=== PATIENT | female | born 1945 | race Caucasian/White ===

== ENCOUNTER 2017-12-19 21:10 | Inpatient (IN) ==
[2017-12-20] MEDS ORDERED: Ibuprofen 400 MG TABLET PO PRN (02:05)
[2017-12-20] MEDS ORDERED: Naloxone 0.4 MG/ML INJ IVP PRN (02:05)
--- NOTE | 2017-12-20 02:25 | Internal Med History&Physical ---
<Makeda Live H - Last Filed: 12/20/17 02:53> Date of Encounter: 12/20/17 Time of Encounter: 02:11 Internal Medicine - H&P: HPI Chief complaint: right upper extremity infection Admitted From: Home Plans for Post Hospital Care: Home History of present illness: Ms. 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 Patient states her reported that she had a fever earlier in the day. Patient denies any fevers currently. Patient is a difficult historian and appears to have difficulty keeping focus. It is difficult to ascertain meaningful information about her past medical history. Patient does have a history of hepatic encephalopathy, however, according to her , this is her baseline. Patient and her report that she had new onset diarrhea yesterday which persisted throughout the day. She is denying any diarrhea today. She denies any abdominal tenderness, melena, hematochezia, or hematemesis. She denies any nausea or vomiting. Patient states she has a cat that sleeps in the bed with her. She is unsure of when she was bitten. She is currently on multiple immunosuppressive medications. 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 Patient denies any previous cardiac history of interventions but appears fluid overloaded on exam. She denies any current chest pain, palpitations, shortness or breath, or nausea. Past Med Surg Social Fam HX - Past Medical History Attestation: Yes The following information was validated with the patient. Source: patient, old records reviewed Medical history: CHF, liver disease Psychiatric history: no psych history - Past Surgical History Surgical History: cholecystectomy - Social History Smoking Status: Never smoker Smokeless Tobacco Status: No Alcohol use: none Drug use: none - Family History Mother Hx Family Cardiac Disorders: Yes (CHF) Internal Medicine - H&P: Meds Cholecalciferol (D-3) [Vitamin D] 5,000 unit PO QWEEK 12/19/17 [History] Furosemide [Lasix] 40 mg PO DAILY 12/19/17 [History] Glucosamn/Condroitn/C/Mn/[place] [Cvs Glucosamine Chondroitin Tb] 1 each PO DAILY 12/19/17 [History] Lactulose [Enulose] 15 ml PO TID 12/19/17 [History] Levothyroxine [Synthroid] 112 mcg PO 0630 12/19/17 [History] Memantine HCl [Memantine HCl] 5 mg PO BID 12/19/17 [History] Mv-Mn/FA/Vit K1/Lycop/Lut/Zeax [Ocuvite Eye + Multi Tablet] 1 each PO DAILY [History] Mycophenolate Mofetil [Cellcept] 250 mg PO BID 12/19/17 [History] PredniSONE [Alee] 5 mg PO DAILY 12/19/17 [History] Spironolactone [Aldactone] 50 mg PO DAILY 12/19/17 [History] 3 Allergy/AdvReac Type Severity Reaction Status Date / Time Sulfa (Sulfonamide Allergy Hives Verified 12/19/17 18:05 Antibiotics) All Systems PM: A 10-system review of systems was performed and is negative for pertinent findings except as documented above in the HPI. - Constitutional Constitutional: fever(s), no chills, no fatigue, no lethargy, no malaise, no night sweats, no weight gain, no weight loss - EENT Eyes: no change in vision Nose, mouth and throat: no nasal congestion, no nasal discharge - Cardiovascular Cardiovascular ROS IM: no chest pain, no claudication, no diaphoresis, no dyspnea, no dyspnea on exertion, no irregular heart rhythm, no lightheadedness, no orthopnea, no palpitations, no paroxysmal nocturnal dyspnea - Respiratory Respiratory: no cough, no dyspnea, no chest congestion - Gastrointestinal Gastrointestinal: diarrhea, no abdominal pain, no coffee ground emesis, no constipation, no hematemesis, no hematochezia, no melena, no nausea - Musculoskeletal Musculoskeletal ROS IM: no joint swelling - Integumentary Integumentary IM: erythema, rash, jaundice, no non-healing lesions - Neurological Neurological ROS: memory loss, no abnormal hearing, no abnormal movements, no abnormal speech, no confusion, no focal weakness, no tingling, no weakness - Endocrine Endocrine IM: no cold intolerance, no heat intolerance - Hematologic/Lymphatic Hematologic/Lymphatic: easy bruising - Constitutional Vitals: Temp Pulse Resp BP Pulse Ox 98.3 F 74 16 125/70 97 12/20/17 00:30 12/19/17 23:22 12/19/17 23:22 12/19/17 23:22 12/19/17 23:22 General appearance: Present: cooperative, A&O X 3, pleasant, no acute distress, answers questions appropriately (patient understands questioning, and is re- directable, but has difficulty staying focused and recalling information) Exam: chronically ill appearing - Head Head exam: Present: atraumatic, normocephalic - Eye Eye exam: Present: PERRL, scleral icterus, conjuntiva pink Pupils: Present: PERRL - Neck Neck exam general surgery: Present: supple, trachea midline. Absent: lymphadenopathy - Respiratory Respiratory exam: Present: rales. Absent: accessory muscle use, rhonchi, wheezes - Cardiovascular Cardiovascular exam: Present: RRR, +S1, +S2. Absent: diastolic murmur, gallop, rubs, systolic murmur - GI/Abdominal GI/Abdominal exam: Present: normal bowel sounds, soft, no peritoneal signs. Absent: distended, firm, guarding, hernia, rebound, tenderness - Expanded GI/Abdominal Exam GI/Abdominal exam expanded: Absent: ascites - Extremities Exam Extremities exam: Present: full ROM, pedal edema, warm, radial pulses palpable and symmetrical. Absent: calf tenderness, cyanotic, joint swelling Additional comments: Patient's right upper extremity with a erythematous deep red stain-like lesion located over the extensor surface of her right forearm and arm. Patient states this lesion has been present prior to initiation of her symptoms. This area of discoloration is non-blanchable. The entire right forearm is, however, warm to the touch, erythematous, slightly edematous, and tender to palpation. - Neurological Exam Neurological exam: Present: alert, CN II-XII intact, oriented X3, no focal deficits, strengths equal and symetr throughout. Absent: pronater drift, facial droop, speech deficit - Psychiatric Psychiatric exam: Present: normal affect, normal mood - Skin Skin exam: Present: dry, intact, warm. Absent: excoriation, petechiae - Assessment and plan (1) Cellulitis Current Visit: No Status: Acute Assessment and plan: 72 yo chronically ill female with PMHx of autoimmune liver disease on immunosuppression presents with signs of RUE infection after sustaining a cat bite. Patient has a chronic skin pigmentation on the same extremity. She is unclear what that is from but it was present prior to signs of infection. -Will cover for most likely causative organisms as well as Bartonella to cover for potential cat scratch fever as patient with axillary tenderness and lymphadenopathy. -Patient received a dose of Zosyn and Cleocin at outside facility prior to transport. -IV doxycycline and IV Zosyn. -Consult to infectious disease. Qualifiers: Site of cellulitis: extremity Site of cellulitis of extremity: upper extremity Laterality: right Qualified Code(s): L03.113 - Cellulitis of right upper limb (2) Congestive heart failure Current Visit: Yes Status: Acute Assessment and plan: Patient denies history of congestive heart failure, however, she appears fluid overloaded on physical exam with bilateral pedal edema and crackles in her bilateral lungs. Patient reports seeing physicians at many different facilities and she is on lasix as an outpatient. -Will obtain medical records. -We will order a BNP, chest x-ray, and echocardiogram in the a.m. Qualifiers: Heart failure type: unspecified Heart failure chronicity: unspecified Qualified Code(s): I50.9 - Heart failure, unspecified (3) Primary biliary cirrhosis Current Visit: Yes Status: Acute Assessment and plan: Will resume home medications once confirmed in the EMR. (4) Portal hypertension Current Visit: Yes Status: Acute Assessment and plan: Will resume home medications once confirmed in EMR. (5) DVT prophylaxis Current Visit: Yes Status: Acute Assessment and plan: EPCDs as patient has baseline anemia and thrombocytopenia. - Time Spent With Patient Total time spent is greater than 50% in coordination of care (as documented) at patient's floor/unit and/or counseling patient: <Bhavana Beyer - Last Filed: 12/20/17 04:23> Date of Encounter: 12/20/17 Internal Medicine - H&P: HPI History of present illness: Ms. Kent is a 72 year old female All Systems PM: A 10-system review of systems was performed and is negative for pertinent findings except as documented above in the HPI. - Constitutional Vitals: Temp Pulse Resp BP Pulse Ox 98.3 F 77 16 108/58 96 12/20/17 03:17 12/20/17 03:17 12/20/17 03:17 12/20/17 03:17 12/20/17 03:17 - Attending Attestation I have seen and examined this patient independently. I have discussed with resident physician Dr. Live regarding the management plan. Agree with the documentation. - Assessment and plan (1) Cellulitis Current Visit: No Status: Acute Qualifiers: Site of cellulitis: extremity Site of cellulitis of extremity: upper extremity Laterality: right Qualified Code(s): L03.113 - Cellulitis of right upper limb (2) Congestive heart failure Current Visit: Yes Status: Acute Qualifiers: Heart failure type: unspecified Heart failure chronicity: unspecified Qualified Code(s): I50.9 - Heart failure, unspecified (3) Primary biliary cirrhosis Current Visit: Yes Status: Acute (4) Portal hypertension Current Visit: Yes Status: Acute (5) DVT prophylaxis Current Visit: Yes Status: Acute - Time Spent With Patient Total time spent is greater than 50% in coordination of care (as documented) at patient's floor/unit and/or counseling patient:
[2017-12-20 04:37] LABS: Mean Platelet Volume 10.9 fL (9.4-12.4); Red Cell Distribution Width 15.7 % (11.5-14.5)
[2017-12-20] MEDS: Doxycycline 100 MG in 0.9 % Sodium Chloride Mini Bag 100 ML IVPB SCH ×2 (04:38→15:37)
[2017-12-20 04:39] LABS: Basophils % 0.4 %; Eosinophils # 0.1 K/mcL (0.0-0.6); Eosinophils % 1.9 %; Hematocrit 23.2 % (35.3-44.9); Hemoglobin 7.6 g/dL (11.5-15.4); Immature Granulocytes % 0.4 % (0-4); Immature Platelets 1.9 % (1.1-6.1); Lymphocytes # 0.7 K/mcL (0.6-4.6); Lymphocytes % 25.2 %; Mean Corpuscular HGB Conc 32.8 g/dL (31.6-35.5); Mean Corpuscular Hemoglobin 32.5 pg (28.0-33.3); Mean Corpuscular Volume 99.1 fL (83.0-100.0); Monocytes # 0.3 K/mcL (0.0-1.3); Monocytes % 12.2 %; Neutrophils # 1.6 K/mcL (1.6-8.9); Red Blood Count 2.34 M/mcL (3.82-4.97); Segmented Neutrophils % 59.9 %
[2017-12-20 05:11] LABS: Platelet Count 37 K/mcL (140-400)
[2017-12-20 05:13] LABS: Hypochromasia Present (Not Present); Microcytosis Present (Not Present); Platelet Estimate Marked Decrease (Normal)
[2017-12-20] MEDS ORDERED: Piperacillin/Tazobactam 3.375 GM in 0.9 % Sodium Chloride Mini Bag 100 ML IVPB SCH (08:00)
[2017-12-20 08:01] LABS: Albumin 2.5 g/dL (3.5-5.7); Albumin/Globulin Ratio 1.3 (1.1-2.2); Bilirubin,Total 5.9 mg/dL (0.3-1.0); Calcium 7.8 mg/dL (8.6-10.3); Magnesium 1.7 mg/dL (1.6-2.6); Potassium 3.5 mEq/L (3.5-5.1); Total Protein 4.5 g/dL (6.4-8.9)
--- NOTE | 2017-12-20 08:38 | Event Note ---
<Angelita Carmichael - Last Filed: 12/20/17 14:36> Date of Encounter: 12/20/17 Time of Encounter: 08:36 72yo female PMH autoimmune liver disease, CKD, CHF who presented to [facility] from [place] [facility] complaining of right upper extremity swelling and pain after Bite on Tuesday. Patient denies fever, chills, nausea, vomiting. She reports that her right axilla is stretch box tender. Gen.: Vitals noted. No acute distress. AAOx3 HEENT: scleral icterus bilaterally, oropharynx clear, Normocephalic, atraumatic Cardiac: RRR, no murmur, +S1/S2 Pulmonary: CTA bilaterally with rales, no wheezes, rhonchi, equal chest expansion Abdomen: soft, nontender, Bowel sounds noted, no guarding MSK: ROM intact, no joint swelling noted skin: jaundice Extremities:+ BLE edema, nontender calf, no cyanosis or clubbing. Right upper extremity is warm, lymphadenopathy in axilla, erythema Neuro: A&Ox3, moves all extremities, no focal deficits A/P cellulitis Patient reported that she was bit by her cat 3 days ago in her right upper extremity then the next day she developed ecchymosis, erythema, warmth, swelling , right lymphadenopathy and tenderness. The patient was started on IV Zosyn and doxycycline. Afebrile, WBC 2.7 (6.5) RUE CT: demonstrated cellulitis of the right upper extremity Examination of right upper extremity: ecchymosis, warmth, lymphadenopathy and tenderness of right axilla -blood cultures ordered -IV continue Zosyn and doxycycline -infectious disease consulted, recommendations appreciated anemia Hgb 7.6 (9) may be chronic anemia no obvious acute active bleeding RUE CT ordered to rule out hematoma/hemorrhage into right upper extremity. CT demonstrated cellulitis of the right upper extremity -will monitor H&H thrombocytopenia may be secondary to liver disease, most likely chronic platelets 37 (66) -will continue to monitor with CBC CKD stage 3 creatinine 1.24 -avoid nephrotoxic agents autoimmune liver disease -history of autoimmune liver disease, primary biliary cirrhosis. Follows with Dr. Maldonado of hepatology in [place] total Bili 5.9 (6.3), direct bili 3, indirect 3.3, ammonia 75, LFT WNL, Alk phos 103 (123) the patient is jaundiced, scleral icterus -continue home medications of Cellcept, Ursodiol, lactulose, Aldactone -will order CMP for tomorrow congestive heart failure patient reported that no one told her she had CHF CXR: no acute cardiopulmonary abnormality, no fluid overload, stable lower lobe scarring Rales on lung exam -echo pending DVT prophylaxis holding anticoagulation due to hemoglobin dropped to 7.6 from 9, concern of bleed EPCD <Ish Davis - Last Filed: 12/20/17 15:39> Date of Encounter: 12/20/17 I examined this patient and my medical decision-making was reviewed with the Resident Physician on 12/20/17. I agree with the documented findings, disposition and treatment plan as described except to the extent set forth below. Ms Kent is currently admitted due to cellulitis of RUE due to cat bite. She appears to be improving with current treatment. Exam RUE with ecchymosis and erythema. No pain with movement of hand or arm. Tender in axilla. I/P 1. Cellulitis RUE s/p cat bite Pt appears to be clinically improving. H/H dropped - will check CT to r/o fluid collection. Currently on Zosyn and Doxy - concern for Pasturella, strep and staph. Pt is immunocompromised due to autoimmune disease and immunosuppresant. 2. Pancytopenia 3. Autoimmune hepatitis
--- NOTE | 2017-12-20 13:37 | Infectious Disease Consult ---
Date of Encounter: 12/20/17 Time of Encounter: 13:20 Assessment and Plan (1) Cellulitis Status: Acute Assessment and plan: Patient had cat bite Saturday night to the right wrist that resulted in significant erythema, warmth, low-grade fever of 100.1. Cat is a house cat, is up to date on all vaccinations, so is patient. CT of the right upper extremity done at [place] shows subcutaneous edema diffusely, most prominent in the elbow and proximal forearm. No soft tissue gas was noted. No evidence of osteomyelitis. No acute bony abnormalities noted. Causative organism: unclear reacting clearance: 42 Plan: 12/20 blood cultures x2 pending. Zosyn day 1-continue stop doxycycline switch to Augmentin upon discharge. treat for a total of 10 days. Bartonella [place] IgG and IgM Pending. Qualifiers: Site of cellulitis: extremity Site of cellulitis of extremity: upper extremity Laterality: right Qualified Code(s): L03.113 - Cellulitis of right upper limb (2) Congestive heart failure Status: Acute Assessment and plan: Echocardiogram pending. Qualifiers: Heart failure type: unspecified Heart failure chronicity: unspecified Qualified Code(s): I50.9 - Heart failure, unspecified (3) CKD (chronic kidney disease), stage III Status: Acute Assessment and plan: Renally dose medications (4) Anemia Status: Acute Assessment and plan: Per primary team Qualifiers: Anemia type: unspecified type Qualified Code(s): D64.9 - Anemia, unspecified (5) Autoimmune liver disease Status: Acute Assessment and plan: Sees hepatology just in [place]. Patient takes prednisone, Cellcept at home. Infectious Disease HPI - Data of Consult Patient: new to practice Consult date: 12/20/17 Requesting Physician: Ish Davis DO Primary Care Provider: Deedee Esqueda CNP - Consult Narrative Reason for consult: s/p cat bite with infection History of present illness: Ms. Kent is a 72 year old female who arrived to [facility] ED on 12/19/17 with chief complaint of right upper extremity warmth, erythema, swelling associated with the right axillary lymphadenopathy and tenderness with subjective fevers, and new onset diarrhea, and recent cat Bite. She was subsequently transferred to [facility] for further workup. Infectious diseases consult it on 12/20/17 for recommendations regarding cat bite with infection and lymphadenopathy. She has a past medical history of autoimmune liver disease, CHF. She follows with a hepatology is in [place]. Patient states that on Tuesday night she was laying in bed and her cat was laying in bed with her. Her cat bit her on her right forearm area. Afterward she was not having any symptoms. On Tuesday morning, she had a low-grade fever of 100.1, and her right forearm was warm, erythematous, swollen. She also reported having chills as well. Her called the patient's PCP, and they were directed to go to the emergency department. Prior to going to the emergency department, she had one episode of diarrhea. Upon arrival to the emergency room in [place], vitals were as follows: temperature 98.8, pulse 88, respirations 16, blood pressure 152/77, oxygen saturation 98% on room air. Pertinent labs: WBC 6.9, hemoglobin 9, platelets 66, 9 or 1.6, B1 38, creatinine 1.24 (baseline), total bilirubin 6.3 AST 43, ALP 26, ALP 123, ammonia 75. X-ray of the right forearm showed no acute osseous abnormality, diffuse edematous soft tissue swelling, no foreign body present. Bedside ultrasound was done at [facility] in the emergency department, and showed cobblestone in the tissues, but no fluid collection or signs of abscess. She received a dose of Zosyn and Cleocin at [place]. Patient was subsequently transferred to [facility] for further workup, and was placed on IV doxycycline and IV Zosyn. She has been afebrile overnight. Today, patient denies nausea, vomiting, diarrhea, fever, chills, chest pain, shortness of breath. Her only complaint is mild tenderness in her right forearm. CC: Ish Davis, DO Past Med Surg Social Fam HX - Past Medical History Medical history: CHF, liver disease Psychiatric history: no psych history - Past Surgical History Surgical History: cholecystectomy - Social History Smoking Status: Never smoker Smokeless Tobacco Status: No Alcohol use: none Drug use: none - Family History Mother Hx Family Cardiac Disorders: Yes (CHF) Infectious Disease-CN:Meds Cholecalciferol (D-3) [Vitamin D] 5,000 unit PO QWEEK 12/19/17 [History] Furosemide [Lasix] 40 mg PO DAILY 12/19/17 [History] Glucosamn/Condroitn/C/Mn/[place] [Cvs Glucosamine Chondroitin Tb] 1 each PO DAILY 12/19/17 [History] Lactulose [Enulose] 15 ml PO TID 12/19/17 [History] Levothyroxine [Synthroid] 112 mcg PO 0630 12/19/17 [History] Memantine HCl [Memantine HCl] 5 mg PO BID 12/19/17 [History] Mv-Mn/FA/Vit K1/Lycop/Lut/Zeax [Ocuvite Eye + Multi Tablet] 1 each PO DAILY [History] Mycophenolate Mofetil [Cellcept] 250 mg PO BID 12/19/17 [History] PredniSONE [Alee] 5 mg PO DAILY 12/19/17 [History] Spironolactone [Aldactone] 50 mg PO DAILY 12/19/17 [History] Ursodiol [Ursodiol] 600 mg PO BID 12/20/17 [History] 3 Allergy/AdvReac Type Severity Reaction Status Date / Time Sulfa (Sulfonamide Allergy Hives Verified 12/19/17 18:05 Antibiotics) All systems: reviewed and no additional remarkable complaints except as stated Exam - Constitutional Vitals: Temp Pulse Resp BP Pulse Ox 98.6 F 75 1 114/63 97 12/20/17 11:00 12/20/17 11:00 12/20/17 11:00 12/20/17 11:00 12/20/17 11:00 General appearance: no acute distress, obese Exam: Patient has sitting up in bed comfortably, no acute distress. She is very pleasant. - Head Head exam: Present: atraumatic, normocephalic - Respiratory Respiratory exam: Present: CTAB - Cardiovascular Cardiovascular exam: Present: RRR, +S1, +S2 Additional comments: +2 systolic murmur heard best at the right upper sternal border. - GI/Abdominal GI/Abdominal exam: Present: normal bowel sounds, soft. Absent: distended, tenderness - Extremities Exam Additional comments: Pulse 1 bilateral lower extremity pitting edema. Bruising noted along the left arm. Right arm erythema going from the rest all the way up to the elbow, more prominent on the lateral side. No open sores, to the skin present. And is warm to touch. - Neurological Exam Neurological exam: Present: alert, oriented X3 - Psychiatric Psychiatric exam: Present: normal affect, normal mood Infectious Disease CN: Results - Labs CBC & Chem 7: 12/20/17 03:58 12/20/17 03:58 - VTE Documentation of Mechanical Device: Intermittent pneumatic compression device Consult Discharge Plan - Plan Referrals: Deedee Esqueda, [employer] [Primary Care Provider] - 12/29/17 2:30 pm - Attending Attestation I examined this patient and my medical decision-making was reviewed with the Resident Physician. I agree with the documented findings, disposition and treatment plan as described except to the extent set forth below. This is an addendum to original report dictated by resident physician. Please refer to residents note for full detail. Patient 72-year-old woman with past medical history mentioned below including autoimmune hepatitis currently on CellCept 250 mg by mouth twice a day and prednisone 5 mg daily apparently was bitten by her cat in the right forearm. Patient is having swelling pain and redness and low-grade fever at home so she came to the emergency department for evaluation. Patient was evaluated transferred to [facility] for further workup and evaluation. Since admission patient has been afebrile, she has been moderately leukopenic. Rest of the labs including kidney function shows elevated LFTs, hyperbilirubinemia and chronic kidney disease. Patient was started on doxycycline and Zosyn. We were asked to evaluate the patient make further recommendation. Next Currently patient doing great medically. States that she is feeling much better. Continues to see erythema and the right forearm but there is no fluctuance not hard to touch. Patient was having some axillary lymphadenopathy but I was unable to palpate it. Next Assessment and plan at this point patient is mildly immunosuppressed with small dose CellCept and low-dose prednisone. I will treat with Zosyn for now. May DC doxycycline. On discharge May switched to oral Augmentin. I did check Bartonella henselae IgG and IgM and I will follow up on that as an outpatient. Duration of treatment 10 days. Monitor labs and for drug toxicity
[2017-12-20] MEDS: Lactulose Oral Soln 20 GM/30 ML UDC PO SCH ×2 (15:36→20:01)
[2017-12-20] MEDS: Piperacillin/Tazobactam 3.375 GM in 0.9 % Sodium Chloride Mini Bag 100 ML IVPB SCH (18:45)
[2017-12-21 04:49] LABS: Basophils % 0.4 %; Immature Granulocytes % 0.4 % (0-4)
[2017-12-21 04:51] LABS: Eosinophils # 0.1 K/mcL (0.0-0.6); Eosinophils % 2.8 %; Hematocrit 23.2 % (35.3-44.9); Hemoglobin 7.5 g/dL (11.5-15.4); Immature Platelets 1.9 % (1.1-6.1); Lymphocytes # 0.6 K/mcL (0.6-4.6); Lymphocytes % 24.9 %; Mean Corpuscular HGB Conc 32.3 g/dL (31.6-35.5); Mean Corpuscular Hemoglobin 31.9 pg (28.0-33.3); Mean Corpuscular Volume 98.7 fL (83.0-100.0); Mean Platelet Volume 10.9 fL (9.4-12.4); Monocytes # 0.3 K/mcL (0.0-1.3); Neutrophils # 1.5 K/mcL (1.6-8.9); Red Blood Count 2.35 M/mcL (3.82-4.97); Red Cell Distribution Width 15.8 % (11.5-14.5); Segmented Neutrophils % 59.5 %
[2017-12-21 04:53] LABS: Platelet Count 42 K/mcL (140-400)
[2017-12-21 05:04] LABS: Albumin 2.5 g/dL (3.5-5.7); Albumin/Globulin Ratio 1.2 (1.1-2.2); Bilirubin,Total 3.7 mg/dL (0.3-1.0); Calcium 7.6 mg/dL (8.6-10.3); Globulin 2.1 g/dL (2.4-3.5); Potassium 3.7 mEq/L (3.5-5.1); Total Protein 4.6 g/dL (6.4-8.9)
[2017-12-21] MEDS: Piperacillin/Tazobactam 3.375 GM in 0.9 % Sodium Chloride Mini Bag 100 ML IVPB SCH ×3 (05:26→23:01)
--- NOTE | 2017-12-21 08:44 | Internal Med Progress Note ---
<Angelita Carmichael - Last Filed: 12/21/17 10:59> Date of Encounter: 12/21/17 Time of Encounter: 08:41 - Assessment and plan (1) Cellulitis Current Visit: No Status: Acute Assessment and plan: Patient reported that she was bit by her cat 3 days ago in her right upper extremity then the next day she developed ecchymosis, erythema, warmth, swelling , right lymphadenopathy and tenderness. The patient was started on IV Zosyn and doxycycline. Afebrile, WBC 2.5 (6.5) RUE CT: demonstrated cellulitis of the right upper extremity Examination of right upper extremity: erythema of right forearm nontender, warmth, lymphadenopathy and tenderness of right axilla patient reports the erythema is improving along with tenderness of right axilla -blood cultures pending -Bartonella Escobar IgG and IGM pending -IV continue Zosyn day 2 -doxycycline stopped -infectious disease consulted, recommendations appreciated. They recommend upon discharge Augmentin for total of 10 days duration of antibiotics. Qualifiers: Site of cellulitis: extremity Site of cellulitis of extremity: upper extremity Laterality: right Qualified Code(s): L03.113 - Cellulitis of right upper limb (2) Autoimmune liver disease Current Visit: Yes Status: Acute Assessment and plan: -history of autoimmune liver disease, primary biliary cirrhosis. Follows with Dr. Maldonado of hepatology in [place] total Bili improving 3.7 (6.3), direct bili 3, indirect 3.3, ammonia 75, LFT WNL , Alk phos 103 (123) the patient is jaundiced, scleral icterus -continue home medications of Cellcept, Ursodiol, lactulose, Aldactone (3) CKD (chronic kidney disease), stage III Current Visit: Yes Status: Acute Assessment and plan: creatinine 1.26 -avoid nephrotoxic agents -monitor renal function -renally dose medications (4) Anemia Current Visit: Yes Status: Acute Assessment and plan: Hgb 7.5 (9) may be chronic anemia no obvious acute active bleeding RUE CT ordered to rule out hematoma/hemorrhage into right upper extremity. CT demonstrated cellulitis of the right upper extremity -will monitor H&H Qualifiers: Anemia type: unspecified type Qualified Code(s): D64.9 - Anemia, unspecified (5) Congestive heart failure Current Visit: Yes Status: Acute Assessment and plan: Patient denies history of congestive heart failure CXR: no acute cardiopulmonary abnormality, no fluid overload, stable lower lobe scarring Rales of left right lower lobe on lung exam -echo pending Qualifiers: Heart failure type: unspecified Heart failure chronicity: unspecified Qualified Code(s): I50.9 - Heart failure, unspecified (6) DVT prophylaxis Current Visit: Yes Status: Acute Assessment and plan: EPCDs due to anemia and thrombocytopenia that is chronic to her (7) Thrombocytopenia Current Visit: Yes Status: Acute Assessment and plan: Likely secondary to liver disease, most likely chronic platelets 42 (66) -will continue to monitor with CBC - Time Spent With Patient Total time spent is greater than 50% in coordination of care (as documented) at patient's floor/unit and/or counseling patient: - Subjective Interval history: 72yo female PMH autoimmune liver disease, CKD, CHF who presented to [facility] from [place] ED complaining of right upper extremity swelling and pain after Bite on Tuesday. Patient denies fever, chills, nausea, vomiting. She reports that her right axilla is rolling machine tender but is improving from yesterday. She has no other complaints. - Constitutional Vitals: Temp Pulse Resp BP Pulse Ox 98.9 F 74 14 122/68 98 12/21/17 06:41 12/21/17 06:41 12/21/17 06:41 12/21/17 06:41 12/21/17 06:41 General appearance: Present: cooperative, A&O X 3, pleasant, no acute distress, answers questions appropriately (patient understands questioning, and is re- directable, but has difficulty staying focused and recalling information) Exam: Gen.: Vitals noted. No acute distress. AAOx3 HEENT: scleral icterus bilaterally, oropharynx clear, Normocephalic, atraumatic Cardiac: RRR, no murmur, +S1/S2 Pulmonary: CTA bilaterally with rales in right lung base, no wheezes, rhonchi, equal chest expansion Abdomen: soft, nontender, Bowel sounds noted, no guarding MSK: ROM intact, no joint swelling noted skin: jaundice Extremities:+ BLE edema, nontender calf, no cyanosis or clubbing. Right upper extremity is warm, lymphadenopathy in axilla, erythema of right forearm, nontender Neuro: A&Ox3, moves all extremities, no focal deficits Internal Medicine: Result - Labs CBC & Chem 7: 12/21/17 03:54 12/21/17 03:54 Labs: Short CBC 12/21/17 Range/Units 03:54 WBC 2.5 L (4.3-11.1) K/mcL Hgb 7.5 L (11.5-15.4) g/dL Hct 23.2 L (35.3-44.9) % Plt Count 42 L (140-400) K/mcL Neutrophils # 1.5 L (1.6-8.9) K/mcL BMP 12/21/17 03:54 Sodium 139 Potassium 3.7 Chloride 116 H Carbon Dioxide 17 L BUN 40 H Creatinine 1.26 H Glucose 121 H Calcium 7.6 L Liver Function 12/21/17 Range/Units 03:54 Total Bilirubin 3.7 H (0.3-1.0) mg/dL AST 35 (13-39) Units/L ALT 23 (7-52) Units/L Alkaline Phosphatase 104 (34-104) Units/L Albumin 2.5 L (3.5-5.7) g/dL - Impressions Impressions Chest X-Ray 12/20/17 06:00 IMPRESSION: No acute abnormality. Stable lower lobe scarring. No evidence of fluid overload. D/ /20/2017 14:05:32 Beverley Solomon MD / [email or web address] Interpreting Provider: Beverley Solomon MD Upper Extremity CT 12/20/17 13:30 IMPRESSION: Lack of IV contrast somewhat limits evaluation. There is subcutaneous edema somewhat diffusely to the right upper extremity posteriorly, most significant about the elbow and proximal forearm. With the clinical history this could reflect cellulitis. There is also somewhat more focal fluid attenuation material, without organized appearance to suggest abscess, in the subcutaneous fat posterior to the elbow and proximal forearm. No soft tissue gas noted. This could relate to the cellulitis although phlegmon or developing abscess is not entirely excluded. No acute bony abnormalities. No CT evidence for osteomyelitis. Degenerative changes to the right AC joint and to the right wrist. Diffuse bone demineralization. D/ 12/20/2017 14:16:10 Lit Otero MD / demi Interpreting Provider: Lit Otero MD - VTE Documentation of Mechanical Device: Intermittent pneumatic compression device Consult Discharge Plan - Plan Referrals: Deedee Esqueda, HYDROGEOLOGY PROFESSOR [Primary Care Provider] - 12/29/17 2:30 pm <Ish Davis - Last Filed: 12/21/17 16:45> Date of Encounter: 12/21/17 - Assessment and plan (1) Cellulitis Current Visit: No Status: Acute Qualifiers: Site of cellulitis: extremity Site of cellulitis of extremity: upper extremity Laterality: right Qualified Code(s): L03.113 - Cellulitis of right upper limb (2) Congestive heart failure Current Visit: Yes Status: Chronic Qualifiers: Heart failure type: diastolic Heart failure chronicity: chronic Qualified Code(s): I50.32 - Chronic diastolic (congestive) heart failure (3) DVT prophylaxis Current Visit: Yes Status: Acute (4) Autoimmune liver disease Current Visit: Yes Status: Chronic (5) CKD (chronic kidney disease), stage III Current Visit: Yes Status: Chronic (6) Pancytopenia Current Visit: Yes Status: Chronic (7) Anemia Current Visit: Yes Status: Suspected Qualifiers: Anemia type: other cause Other causes of anemia: chronic disease, other Qualified Code(s): D63.8 - Anemia in other chronic diseases classified elsewhere (8) Thrombocytopenia Current Visit: Yes Status: Chronic - Time Spent With Patient Total time spent is greater than 50% in coordination of care (as documented) at patient's floor/unit and/or counseling patient: - Constitutional Vitals: Temp Pulse Resp BP Pulse Ox 98.8 F 84 16 130/70 94 12/21/17 14:20 12/21/17 14:20 12/21/17 14:20 12/21/17 14:20 12/21/17 14:20 Internal Medicine: Result - Labs CBC & Chem 7: 12/21/17 03:54 12/21/17 03:54 Labs: Short CBC 12/21/17 Range/Units 03:54 WBC 2.5 L (4.3-11.1) K/mcL Hgb 7.5 L (11.5-15.4) g/dL Hct 23.2 L (35.3-44.9) % Plt Count 42 L (140-400) K/mcL Neutrophils # 1.5 L (1.6-8.9) K/mcL BMP 12/21/17 03:54 Sodium 139 Potassium 3.7 Chloride 116 H Carbon Dioxide 17 L BUN 40 H Creatinine 1.26 H Glucose 121 H Calcium 7.6 L Liver Function 12/21/17 Range/Units 03:54 Total Bilirubin 3.7 H (0.3-1.0) mg/dL AST 35 (13-39) Units/L ALT 23 (7-52) Units/L Alkaline Phosphatase 104 (34-104) Units/L Albumin 2.5 L (3.5-5.7) g/dL - Impressions Impressions Echocardiogram 12/20/17 02:09 Impressions: LVEF 60-65%. Indeterminate diastolic function. Normal right ventricular structure and function. Mild mitral regurgitation. Mild-moderate aortic stenosis. Mild tricuspid regurgitation. Mild pulmonary hypertension by TR gradient, 38 mmHg. Left Ventricular Wall Motion: Rest Echo Findings All wall segments showed normal motion. Findings: Study Quality * Technically adequate exam. ECG Findings * Normal sinus rhythm. Left Ventricle * LVEF 60-65%. * Normal LV chamber size, wall thickness and function. * Indeterminate diastolic function. Right Ventricle * Normal right ventricular structure and function. Left Atrium * Moderately dilated left atrium. Right Atrium * Normal right atrial size. Mitral Valve * Normal mitral valve structure. * No mitral stenosis. * Mild mitral annular calcification * Mild mitral regurgitation. Aortic Valve * No aortic regurgitation. * Aortic valve not well visualized. * Mild-moderate aortic stenosis. Tricuspid Valve * Tricuspid valve not well visualized. * Mild tricuspid regurgitation. Pulmonic Valve * Pulmonic valve is not well visualized. * No pulmonic stenosis. * No pulmonic regurgitation. Pulmonary Artery * Pulmonary artery not well visualized. Aorta * Normally sized aortic root. Pericardium * There is no pericardial effusion present. Interatrial Septum * Interatrial septum not well evaluated. IVC * The IVC is not well evaluated. Chest X-Ray 12/20/17 06:00 IMPRESSION: No acute abnormality. Stable lower lobe scarring. No evidence of fluid overload. D/ 12/20/2017 14:05:32 Beverley Solomon MD / earusman Interpreting Provider: Beverley Solomon MD - Attending Attestation I examined this patient and my medical decision-making was reviewed with the Resident Physician on 12/21/17. I agree with the documented findings, disposition and treatment plan as described except to the extent set forth below. Ms Kent is currently admitted for cellulitis following cat bite. She remains moderate to high risk due to potential for worsening clinical status. Ms Kent is feeling somewhat better. She is tolerating IV abx. She thinks swelling and redness is improving slowly. No fever. No GI issues. Exam alert Comfortable Mucus membranes dry Heart reg No wheeze R arm - less erythema. Swelling persists. I/P 1. Cellulitis - on IV Zosyn. If continues to improve anticipate d/c home in next 1 - 2 days. 2. Autoimmune hepatitis 3. Pancytopenia Further diagnoses and plan as above.
--- NOTE | 2017-12-21 09:10 | Infectious Disease Progress No ---
Date of Encounter: 12/21/17 Time of Encounter: 09:07 - Assessment and Plan (1) Cellulitis Current Visit: No Status: Acute Patient had cat bite Saturday night to the right wrist that resulted in significant erythema, warmth, low-grade fever of 100.1. Cat is a house cat, is up to date on all vaccinations, so is patient. CT of the right upper extremity done at [place] shows subcutaneous edema diffusely, most prominent in the elbow and proximal forearm. No soft tissue gas was noted. No evidence of osteomyelitis. No acute bony abnormalities noted. Causative organism: unclear Creatinine clearance: 42 Plan: 12/20 blood cultures x2 pending. Zosyn day 2 switch to Augmentin upon discharge. treat through 12/31/2017 Bartonella Henselae IgG and IgM Pending. Qualifiers: Site of cellulitis: extremity Site of cellulitis of extremity: upper extremity Laterality: right Qualified Code(s): L03.113 - Cellulitis of right upper limb (2) Congestive heart failure Current Visit: Yes Status: Acute Echocardiogram from 12/20/17 shows LVEF 60-35%, indeterminate diastolic function, normal right ventricular structure and function, mild mitral regurgitation, mild -moderate aortic stenosis, mild tricuspid regurgitation, mild pulmonary hypertension Qualifiers: Heart failure type: unspecified Heart failure chronicity: unspecified Qualified Code(s): I50.9 - Heart failure, unspecified (3) CKD (chronic kidney disease), stage III Current Visit: Yes Status: Acute Renally dose medications consider possible hepato renal syndrome. (4) Anemia Current Visit: Yes Status: Acute Per primary team Qualifiers: Anemia type: unspecified type Qualified Code(s): D64.9 - Anemia, unspecified (5) Autoimmune liver disease Current Visit: Yes Status: Acute Sees hepatology just in [place]. Patient takes prednisone, Cellcept at home. - Subjective Interval history: 72-year-old female evaluated at bedside. She states that she feels well today. She denies nausea, vomiting, diarrhea, fever, chills, chest pain, shortness of breath. Infect Dis PN-Objective Data - Labs CBC & Chem 7: 12/21/17 03:54 12/21/17 03:54 Labs: Laboratory Results - last 24 hr 12/21/17 12/21/17 03:54 03:54 WBC 2.5 L RBC 2.35 L Hgb 7.5 L Hct 23.2 L MCV 98.7 MCH 31.9 MCHC 32.3 RDW 15.8 H Plt Count 42 L MPV 10.9 Immature Gran % 0.4 Seg Neutrophils % 59.5 Lymphocytes % 24.9 Monocytes % 12.0 Eosinophils % 2.8 Basophils % 0.4 Neutrophils # 1.5 L Lymphocytes # 0.6 Monocytes # 0.3 Eosinophils # 0.1 Basophils # 0.0 Immature Plt Fraction 1.9 Sodium 139 Potassium 3.7 Chloride 116 H Carbon Dioxide 17 L BUN 40 H Creatinine 1.26 H Est GFR ( Amer) 51 L Est GFR (Non-Af Amer) 42 L BUN/Creatinine Ratio 32 H Glucose 121 H Calculated Osmolality 299 Calcium 7.6 L Total Bilirubin 3.7 H AST 35 ALT 23 Alkaline Phosphatase 104 Serum Total Protein 4.6 L Albumin 2.5 L Globulin 2.1 L Albumin/Globulin Ratio 1.2 - Impressions Impressions Echocardiogram 12/20/17 02:09 Impressions: LVEF 60-65%. Indeterminate diastolic function. Normal right ventricular structure and function. Mild mitral regurgitation. Mild-moderate aortic stenosis. Mild tricuspid regurgitation. Mild pulmonary hypertension by TR gradient, 38 mmHg. Left Ventricular Wall Motion: Rest Echo Findings All wall segments showed normal motion. Findings: Study Quality * Technically adequate exam. ECG Findings * Normal sinus rhythm. Left Ventricle * LVEF 60-65%. * Normal LV chamber size, wall thickness and function. * Indeterminate diastolic function. Right Ventricle * Normal right ventricular structure and function. Left Atrium * Moderately dilated left atrium. Right Atrium * Normal right atrial size. Mitral Valve * Normal mitral valve structure. * No mitral stenosis. * Mild mitral annular calcification * Mild mitral regurgitation. Aortic Valve * No aortic regurgitation. * Aortic valve not well visualized. * Mild-moderate aortic stenosis. Tricuspid Valve * Tricuspid valve not well visualized. * Mild tricuspid regurgitation. Pulmonic Valve * Pulmonic valve is not well visualized. * No pulmonic stenosis. * No pulmonic regurgitation. Pulmonary Artery * Pulmonary artery not well visualized. Aorta * Normally sized aortic root. Pericardium * There is no pericardial effusion present. Interatrial Septum * Interatrial septum not well evaluated. IVC * The IVC is not well evaluated. Chest X-Ray 12/20/17 06:00 IMPRESSION: No acute abnormality. Stable lower lobe scarring. No evidence of fluid overload. D/ / 12/20/2017 14:05:32 Beverley Solomon MD / earnold Interpreting Provider: Beverley Solomon MD Upper Extremity CT 12/20/17 13:30 IMPRESSION: Lack of IV contrast somewhat limits evaluation. There is subcutaneous edema somewhat diffusely to the right upper extremity posteriorly, most significant about the elbow and proximal forearm. With the clinical history this could reflect cellulitis. There is also somewhat more focal fluid attenuation material, without organized appearance to suggest abscess, in the subcutaneous fat posterior to the elbow and proximal forearm. No soft tissue gas noted. This could relate to the cellulitis although phlegmon or developing abscess is not entirely excluded. No acute bony abnormalities. No CT evidence for osteomyelitis. Degenerative changes to the right AC joint and to the right wrist. Diffuse bone demineralization. D/ / 12/20/2017 14:16:10 Lit Otero MD / mario Interpreting Provider: Lit Otero MD Exam - Constitutional Vitals: Temp Pulse Resp BP Pulse Ox 98.9 F 74 14 122/68 98 12/21/17 06:41 12/21/17 06:41 12/21/17 06:41 12/21/17 06:41 12/21/17 06:41 General appearance: no acute distress, obese - Head Head exam: Present: atraumatic, normocephalic - Respiratory Respiratory exam: Present: CTAB - Cardiovascular Cardiovascular exam: Present: RRR, +S1, +S2, systolic murmur (+2 systolic murmur heard best at the right upper sternal border) - GI/Abdominal GI/Abdominal exam: Present: normal bowel sounds, soft. Absent: distended, tenderness - Extremities Exam Extremities exam: Absent: pedal edema Additional comments: Right forearm erythematous from the elbow to the rest, more erythematous on the lateral/posterior aspect of the arm. - Neurological Exam Neurological exam: Present: alert, oriented X3 - VTE Documentation of Mechanical Device: Intermittent pneumatic compression device Consult Discharge Plan - Plan Referrals: Deedee Esqueda, AGAPITO [Primary Care Provider] - 12/29/17 2:30 pm - Attending Attestation I examined this patient and my medical decision-making was reviewed with the Resident Physician. I agree with the documented findings, disposition and treatment plan as described except to the extent set forth below.
[2017-12-21] MEDS: Lactulose Oral Soln 20 GM/30 ML UDC PO SCH ×3 (09:17→20:32)
[2017-12-22 05:26] LABS: Hematocrit 24.4 % (35.3-44.9); Hemoglobin 7.8 g/dL (11.5-15.4); Immature Granulocytes % 0.4 % (0-4); Mean Corpuscular Hemoglobin 31.8 pg (28.0-33.3); Mean Corpuscular Volume 99.6 fL (83.0-100.0); Red Blood Count 2.45 M/mcL (3.82-4.97)
[2017-12-22 05:28] LABS: Basophils % 0.4 %; Eosinophils # 0.1 K/mcL (0.0-0.6); Eosinophils % 4.7 %; Immature Platelets 2.1 % (1.1-6.1); Lymphocytes # 0.7 K/mcL (0.6-4.6); Lymphocytes % 30.1 %; Mean Platelet Volume 10.4 fL (9.4-12.4); Monocytes # 0.2 K/mcL (0.0-1.3); Monocytes % 10.2 %; Neutrophils # 1.3 K/mcL (1.6-8.9); Red Cell Distribution Width 15.8 % (11.5-14.5); Segmented Neutrophils % 54.2 %
[2017-12-22 05:33] LABS: Platelet Count 55 K/mcL (140-400)
[2017-12-22 05:41] LABS: Calcium 7.7 mg/dL (8.6-10.3); Potassium 3.8 mEq/L (3.5-5.1)
[2017-12-22] MEDS: Piperacillin/Tazobactam 3.375 GM in 0.9 % Sodium Chloride Mini Bag 100 ML IVPB SCH (06:16)
[2017-12-22 06:36] VITALS: BP 116/53
--- NOTE | 2017-12-22 08:18 | Discharge Summary ---
<Angelita Carmichael - Last Filed: 12/22/17 08:13> Orders not resulted at time of discharge: Pending orders 12/20/17 10:04 Culture,Blood [BC] Stat 12/21/17 04:00 Miscellaneous Lab Test AM 0400 Date of Encounter: 12/22/17 Time of Encounter: 08:13 - Discharge Diagnosis (1) Cellulitis Priority: Primary Status: Acute Qualifiers: Site of cellulitis: extremity Site of cellulitis of extremity: upper extremity Laterality: right Qualified Code(s): L03.113 - Cellulitis of right upper limb (2) Congestive heart failure Priority: Secondary Status: Chronic Qualifiers: Heart failure type: diastolic Heart failure chronicity: chronic Qualified Code(s): I50.32 - Chronic diastolic (congestive) heart failure (3) DVT prophylaxis Priority: Secondary Status: Acute (4) Autoimmune liver disease Priority: Secondary Status: Chronic (5) CKD (chronic kidney disease), stage III Priority: Secondary Status: Chronic (6) Anemia Priority: Secondary Status: Suspected Qualifiers: Anemia type: other cause Other causes of anemia: chronic disease, other Qualified Code(s): D63.8 - Anemia in other chronic diseases classified elsewhere (7) Thrombocytopenia Priority: Secondary Status: Chronic (8) Pancytopenia Priority: Secondary Status: Chronic Hospital course: Ms. Kent is a 72 year old female with past medical history of autoimmune liver disease, CKD who presented to [facility] from [place] ED complaining of right upper extremity swelling and pain after Bite on Tuesday. She reported RUE warmth, erythema, and swelling with associated right axillary lymphadenopathy and tenderness. Patient stated her reported that she had a fever earlier in the day. Patient states she has a cat that sleeps in the bed with her. She is unsure of when she was bitten. She is currently on multiple immunosuppressive medications. She sees Dr. Maldonado as her insole and heel stiffener in [place] in [facility]. Patient denies any previous cardiac history of interventions but appeared fluid overloaded on exam. She denied any current chest pain, palpitations, shortness or breath, or nausea. She was admitted and started on IV Zosyn. Infectious disease was consulted. Blood cultures were sent. Infectious disease ordered Bartonella Escobar IgG and IGM. Echo was done due to concerns of fluid overload and possible CHF. Ejection fraction was normal with EF of 60 to 65%. The patient continue to improve while admitted, she remained afebrile. Infectious disease recommended that patient be discharged home on Augmentin for 10 days. She was instructed to finish antibiotic into follow-up with her PCP in 1 to 2 weeks. She was also told to return the hospital should she develop fever, chills, increase swelling and pain of arm. Upon discharge she was alert and oriented times 3 with full capacity and stated a clear understanding of the treatment plant. Discharge discussed with: patient, nurse - Time Spent with Patient Total time spent providing and/or coordinating discharge services: Greater than 30 minutes - Discharge Medications Prescriptions: Ibuprofen [Motrin] 400 mg PO Q6HR PRN #8 tablet PRN Reason: Mild Pain/Fever Amoxicillin/Clavulanate [Augmentin] 500 mg PO BIDWM #20 tablet HYDROcodone/Acet 5/325 mg [[place] 5-325 mg] 1 tab PO Q6H PRN 2 Days #5 tab PRN Reason: Breakthrough Pain Home Medications: Cholecalciferol (D-3) [Vitamin D] 5,000 unit PO QWEEK 12/19/17 [History] Furosemide [Lasix] 40 mg PO DAILY 12/19/17 [History] Glucosamn/Condroitn/C/Mn/[place] [[facility]vs Glucosamine Chondroitin Tb] 1 each PO DAILY 12/19/17 [History] Lactulose [Enulose] 15 ml PO TID 12/19/17 [History] Levothyroxine [Synthroid] 112 mcg PO 0630 12/19/17 [History] Memantine HCl 5 mg PO BID 12/19/17 [History] Mv-Mn/FA/Vit K1/Lycop/Lut/Zeax [Ocuvite Eye + Multi Tablet] 1 each PO DAILY [History] Mycophenolate Mofetil [Cellcept] 250 mg PO BID 12/19/17 [History] PredniSONE [Alee] 5 mg PO DAILY 12/19/17 [History] Spironolactone [Aldactone] 50 mg PO DAILY 12/19/17 [History] Ursodiol 600 mg PO BID 12/20/17 [History] Amoxicillin/Clavulanate [Augmentin] 500 mg PO BIDWM #20 tablet 12/22/17 [Rx] HYDROcodone/Acet 5/325 mg [[place] 5-325 mg] 1 tab PO Q6H PRN 2 Days #5 tab [Rx] Ibuprofen [Motrin] 400 mg PO Q6HR PRN #8 tablet 12/22/17 [Rx] Allergies/Adverse Reactions: 3 Allergy/AdvReac Type Severity Reaction Status Date / Time Sulfa (Sulfonamide Allergy Hives Verified 12/19/17 18:05 Antibiotics) Date of admission: 12/20/17 04:27 Primary care physician: Deedee Esqueda CNP Consults: 12/20/17 02:09 Consult to Infectious Diseases [CONS] Routine Consulting Provider: Infectious Disease Amaris Reason for Consult: Immunocompromised patient with autoimmune liver disease, likely PBC, with evidence of infection s/p cat bite with axillary lymphadenopathy. Call Completed: No Discharging clinician: Ish Davis Anticipated date of discharge: 12/22/17 - Constitutional Vitals: Temp Pulse Resp BP Pulse Ox 97.9 F 70 16 116/53 99 12/22/17 06:29 12/22/17 06:29 12/22/17 06:29 12/22/17 06:29 12/22/17 06:29 General appearance: Present: cooperative, A&O X 3, pleasant, no acute distress, answers questions appropriately (patient understands questioning, and is re- directable, but has difficulty staying focused and recalling information) Exam: Gen.: Vitals noted. No acute distress. AAOx3 HEENT: scleral icterus bilaterally, oropharynx clear, Normocephalic, atraumatic Cardiac: RRR, no murmur, +S1/S2 Pulmonary: CTA bilaterally with rales in right lung base, no wheezes, rhonchi, equal chest expansion Abdomen: soft, nontender, Bowel sounds noted, no guarding MSK: ROM intact, no joint swelling noted skin: jaundice Extremities:+ BLE edema, nontender calf, no cyanosis or clubbing. Right upper extremity is warm, lymphadenopathy in axilla, erythema of right forearm, nontender Neuro: A&Ox3, moves all extremities, no focal deficits - Patient Status Disposition: Home, Self-Care Condition: Good Functional capacity at discharge: independent ambulation Overall status at discharge: patient is back to baseline - Discharge Instructions Follow Up With: Deedee Esqueda CNP [Primary Care Provider] - 12/29/17 2:30 pm Additional Instructions: Finish antibiotic to completion follow-up with your PCP in 1 to 2 weeks return hospital should you develop worsening fever chills, redness of arm, pain - Diet and Activity Activity: resume usual activities as tolerated Diet: low salt diet - VTE Documentation of Mechanical Device: Intermittent pneumatic compression device <Ish Davis Lizzy - Last Filed: 12/22/17 10:10> - NOTES TO OUTPATIENT PROVIDER Notes to Outpatient Provider: Admitted for cellulitis RUE following a cat bite. Improving with abx. Orders not resulted at time of discharge: Pending orders 12/20/17 10:04 Culture,Blood [BC] Stat 12/21/17 04:00 Miscellaneous Lab Test AM 0400 Date of Encounter: 12/22/17 - Discharge Diagnosis (1) Cellulitis Status: Acute Qualifiers: Site of cellulitis: extremity Site of cellulitis of extremity: upper extremity Laterality: right Qualified Code(s): L03.113 - Cellulitis of right upper limb (2) Congestive heart failure Status: Ruled-out Qualifiers: Heart failure type: diastolic Heart failure chronicity: chronic Qualified Code(s): I50.32 - Chronic diastolic (congestive) heart failure (3) DVT prophylaxis Status: Acute (4) Autoimmune liver disease Status: Chronic (5) CKD (chronic kidney disease), stage III Status: Chronic (6) Pancytopenia Status: Chronic (7) Anemia Status: Suspected Qualifiers: Anemia type: other cause Other causes of anemia: chronic disease, other Qualified Code(s): D63.8 - Anemia in other chronic diseases classified elsewhere (8) Thrombocytopenia Status: Chronic Hospital course: Ms. Kent is a 72 year old female - Time Spent with Patient Total time spent providing and/or coordinating discharge services: 38min Date of admission: 12/20/17 04:27 Primary care physician: Deedee Esqueda CNP Consults: 12/20/17 02:09 Consult to Infectious Diseases [CONS] Routine Consulting Provider: Infectious Disease Amaris Reason for Consult: Immunocompromised patient with autoimmune liver disease, likely PBC, with evidence of infection s/p cat bite with axillary lymphadenopathy. Call Completed: No - Constitutional Vitals: Temp Pulse Resp BP Pulse Ox 97.9 F 70 16 116/53 99 12/22/17 06:29 12/22/17 06:29 12/22/17 06:29 12/22/17 06:29 12/22/17 06:29 - Attending Attestation I examined this patient and my medical decision-making was reviewed with the Resident Physician on 12/22/17. I agree with the documented findings, disposition and treatment plan as described except to the extent set forth below. Ms Kent has been admitted for cellulitis RUE from cat bite. She has steadily improved on abx. She is currently afebrile. She has no other symptoms. She is ready for discharge home with outpatient follow up. Exam alert Pleasant Mucus membranes dry Heart reg with murmur Lungs clear Abd soft RUE edema and erythema improving. Plan D/C home today. Addendum entered and electronically signed by Angelita Carmichael DO 12/22/17 08:32: On cardiac exam systolic murmur was heard. Regular rate and rhythm
--- NOTE | 2017-12-22 08:35 | Infectious Disease Progress No ---
Date of Encounter: 12/22/17 Time of Encounter: 08:33 - Assessment and Plan (1) Cellulitis Status: Acute Patient had cat bite Tuesday night to the right wrist that resulted in significant erythema, warmth, low-grade fever of 100.1. Cat is a house cat, is up to date on all vaccinations, so is patient. CT of the right upper extremity done at [facility] shows subcutaneous edema diffusely, most prominent in the elbow and proximal forearm. No soft tissue gas was noted. No evidence of osteomyelitis. No acute bony abnormalities noted. Causative organism: unclear Creatinine clearance: 42 Plan: 12/19 blood cultures x2 preliminary negative Zosyn day 3 switch to Augmentin upon discharge. treat through 12/31/2017 Bartonella Henselae IgG and IgM Pending. ok to D/C from ID standpoint. ID team will follow up on Bartonella Henselae antibody results. Qualifiers: Site of cellulitis: extremity Site of cellulitis of extremity: upper extremity Laterality: right Qualified Code(s): L03.113 - Cellulitis of right upper limb (2) Congestive heart failure Status: Ruled-out Echocardiogram from 12/20/17 shows LVEF 60-35%, indeterminate diastolic function, normal right ventricular structure and function, mild mitral regurgitation, mild -moderate aortic stenosis, mild tricuspid regurgitation, mild pulmonary hypertension Qualifiers: Heart failure type: diastolic Heart failure chronicity: chronic Qualified Code(s): I50.32 - Chronic diastolic (congestive) heart failure (3) CKD (chronic kidney disease), stage III Status: Chronic Renally dose medications consider possible hepato renal syndrome. (4) Anemia Status: Suspected Per primary team Qualifiers: Anemia type: other cause Other causes of anemia: chronic disease, other Qualified Code(s): D63.8 - Anemia in other chronic diseases classified elsewhere (5) Autoimmune liver disease Status: Chronic Sees hepatology just in [place]. Patient takes prednisone, Cellcept at home. - Subjective Interval history: 72-year-old female evaluated at bedside. Patient denies nausea, vomiting, fevers, chest pain, shortness of breath. She reports one episode of loose stools this morning and admits to feeling cold. Infect Dis PN-Objective Data - Labs CBC & Chem 7: 12/22/17 05:03 12/22/17 04:00 Labs: Laboratory Results - last 24 hr 12/22/17 12/22/17 04:00 05:03 WBC 2.4 L RBC 2.45 L Hgb 7.8 L Hct 24.4 L MCV 99.6 MCH 31.8 MCHC 32.0 RDW 15.8 H Plt Count 55 L MPV 10.4 Immature Gran % 0.4 Seg Neutrophils % 54.2 Lymphocytes % 30.1 Monocytes % 10.2 Eosinophils % 4.7 Basophils % 0.4 Neutrophils # 1.3 L Lymphocytes # 0.7 Monocytes # 0.2 Eosinophils # 0.1 Basophils # 0.0 Immature Plt Fraction 2.1 Sodium 140 Potassium 3.8 Chloride 116 H Carbon Dioxide 17 L BUN 36 H Creatinine 1.22 H Est GFR ( Amer) 53 L Est GFR (Non-Af Amer) 43 L BUN/Creatinine Ratio 30 H Glucose 86 Calculated Osmolality 298 Calcium 7.7 L - Impressions Impressions Echocardiogram 12/20/17 02:09 Impressions: LVEF 60-65%. Indeterminate diastolic function. Normal right ventricular structure and function. Mild mitral regurgitation. Mild-moderate aortic stenosis. Mild tricuspid regurgitation. Mild pulmonary hypertension by TR gradient, 38 mmHg. Left Ventricular Wall Motion: Rest Echo Findings All wall segments showed normal motion. Findings: Study Quality * Technically adequate exam. ECG Findings * Normal sinus rhythm. Left Ventricle * LVEF 60-65%. * Normal LV chamber size, wall thickness and function. * Indeterminate diastolic function. Right Ventricle * Normal right ventricular structure and function. Left Atrium * Moderately dilated left atrium. Right Atrium * Normal right atrial size. Mitral Valve * Normal mitral valve structure. * No mitral stenosis. * Mild mitral annular calcification * Mild mitral regurgitation. Aortic Valve * No aortic regurgitation. * Aortic valve not well visualized. * Mild-moderate aortic stenosis. Tricuspid Valve * Tricuspid valve not well visualized. * Mild tricuspid regurgitation. Pulmonic Valve * Pulmonic valve is not well visualized. * No pulmonic stenosis. * No pulmonic regurgitation. Pulmonary Artery * Pulmonary artery not well visualized. Aorta * Normally sized aortic root. Pericardium * There is no pericardial effusion present. Interatrial Septum * Interatrial septum not well evaluated. IVC * The IVC is not well evaluated. Exam - Constitutional Vitals: Temp Pulse Resp BP Pulse Ox 97.9 F 70 16 116/53 99 12/22/17 06:29 12/22/17 06:29 12/22/17 06:29 12/22/17 06:29 12/22/17 06:29 General appearance: cooperative, no acute distress, obese - Head Head exam: Present: atraumatic - Eye Eye exam: Present: scleral icterus - Respiratory Respiratory exam: Present: CTAB - Cardiovascular Cardiovascular exam: Present: RRR, +S1, +S2, systolic murmur (+2 systolic murmur heard best at the right upper sternal border) - GI/Abdominal GI/Abdominal exam: Present: normal bowel sounds, soft. Absent: tenderness - Extremities Exam Additional comments: +1 bilateral lower extremity pitting edema. Right arm erythema present from the lateral aspect of the elbow up to the wrist , erythema significantly improved since admission. - Neurological Exam Neurological exam: Present: alert, oriented X3 - VTE Documentation of Mechanical Device: Intermittent pneumatic compression device Consult Discharge Plan - Plan Additional Instructions: Finish antibiotic to completion follow-up with your PCP in 1 to 2 weeks return hospital should you develop worsening fever chills, redness of arm, pain Referrals: Deedee Esqueda [employer] [Primary Care Provider] - 12/29/17 2:30 pm Prescriptions: Ibuprofen [Motrin] 400 mg PO Q6HR PRN #8 tablet PRN Reason: Mild Pain/Fever Amoxicillin/Clavulanate [Augmentin] 500 mg PO BIDWM #20 tablet HYDROcodone/Acet 5/325 mg [[place] 5-325 mg] 1 tab PO Q6H PRN 2 Days #5 tab PRN Reason: Breakthrough Pain - Attending Attestation I examined this patient and my medical decision-making was reviewed with the Resident Physician. I agree with the documented findings, disposition and treatment plan as described except to the extent set forth below.
[2017-12-22] MEDS: Lactulose Oral Soln 20 GM/30 ML UDC PO SCH (09:09)
== END 2017-12-22 11:50 | disposition home or self-care (01) | DRG 603 ==
LOC: 3ANU → SUATTDRO 12-20 04:27
PROVIDERS: ADMIT Internal Medicine; ATTEND Internal Medicine

== ENCOUNTER 2018-09-01 16:38 | Inpatient (IN) ==
--- NOTE | 2018-09-01 17:30 | Orthopedic Consult Note ---
Date of Encounter: 09/01/18 Time of Encounter: 17:27 History of Present Illness HPI: Ms. Kent is a 73 year old female Seen in the office today patient was at urgent care to obtain an echocardiogram ordered by primary care physician for heart murmur patient fell and sustained a fracture dislocation of her left shoulder. Patient is right-hand dominant. 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 Patient also has easy bruising. Patient is in significant distress, x-rays were reviewed with the patient show a fracture dislocation of the left shoulder. Patient will be admitted to the hospitalist for evaluation of the cardiac condition, and optimization for surgical clearance. Patient is recommended for reverse shoulder replacement. We reviewed the risks and benefits as well as recovery. All questions were answered. The patient agreed to this treatment plan and acknowledged an understanding of the treatment plan as described. Patient watched an educational video. Past Med Surg Social Fam HX - Past Medical History Medical history: CHF, liver disease, other Psychiatric history: no psych history - Past Surgical History Surgical History: cholecystectomy - Social History Smoking Status: Never smoker Smokeless Tobacco Status: No Alcohol use: none Drug use: none - Family History Mother Hx Family Cardiac Disorders: Yes (CHF) Medications and Allergies Cholecalciferol (D-3) [Vitamin D] 5,000 unit PO QWEEK 12/19/17 [History] Furosemide [Lasix] 40 mg PO BID 12/19/17 [History] Glucosamn/[place]n/C/Mn/[place] [[facility]vs Glucosamine Chondroitin Tb] 1 each PO DAILY 12/19/17 [History] Lactulose [Enulose] 15 ml PO BID 12/19/17 [History] Levothyroxine [Synthroid] 112 mcg PO 0630 12/19/17 [History] Memantine HCl 5 mg PO BID 12/19/17 [History] Mv-Min/FA/Vit K/Lycop/Lut/Zeax [Ocuvite Eye Plus Multi Tablet] 1 each PO DAILY 12/19/17 [History] Mycophenolate Mofetil [Cellcept] 250 mg PO BID 12/19/17 [History] Spironolactone [Aldactone] 50 mg PO DAILY 12/19/17 [History] Ursodiol 600 mg PO BID 12/20/17 [History] Calcium Carbonate [Tums] 177 mg PO QDPC 03/08/18 [History] Rifaximin [Xifaxan] 550 mg PO BID 03/08/18 [History] Allergy/AdvReac Type Severity Reaction Status Date / Time Sulfa (Sulfonamide Allergy Hives Verified 09/01/18 14:14 Antibiotics) All Systems Reviewed: The remainder of the systems were reviewed and are negative Results - Labs Labs: All other labs normal. Consult Discharge Plan - Plan Referrals: NONE,PCP [Primary Care Provider] -
[2018-09-01] MEDS ORDERED: Naloxone 0.4 MG/ML INJ IVP PRN (17:32)
--- NOTE | 2018-09-01 17:52 | Internal Med History&Physical ---
Date of Encounter: 09/01/18 Time of Encounter: 17:49 Internal Medicine - H&P: HPI Chief complaint: Left shoulder pain Admitted From: Direct Admit Plans for Post Hospital Care: Home History of present illness: Ms. Kent is a 73 year old female patient with a history of autoimmune hepatitis, liver cirrhosis who was sent over for admission by orthopedics after a fall resulting in left shoulder fracture while she was on her way to get an echocardiogram at an urgent care facility today. She was evaluated in her primary care provider's office today for regular follow-up and was found to have a murmur. Her primary care provider requested that she get an echocardiogram. On her way there, she slipped and fell on her left side injuring her left shoulder. She denies any shortness of breath at baseline. She does have cirrhosis and swelling/ascites as a result. She takes CellCept and prednisone for her autoimmune hepatitis. She does not recollect having any cardiac issues. She did have an echocardiogram in the past but does not recollect what his findings were. She denies any chest pain. No recent fevers or chills. She does have severe pain in her left shoulder and upper extremity. It is currently in a brace. Past Med Surg Social Fam HX - Past Medical History Attestation: Yes The following information was validated with the patient. Source: patient Medical history: CHF, liver disease, other Additional medical history: heart murmur Psychiatric history: no psych history - Past Surgical History Surgical History: cholecystectomy - Social History Smoking Status: Never smoker Smokeless Tobacco Status: No Alcohol use: none Drug use: none - Family History Mother Living Status: Hx Family Cardiac Disorders: Yes (CHF) - Additional Family History Additional family history: Family history reviewed and found to be noncontributory at this time Internal Medicine - H&P: Meds Cholecalciferol (D-3) [Vitamin D] 5,000 unit PO QWEEK 12/19/17 [History] Furosemide [Lasix] 40 mg PO BID 12/19/17 [History] Glucosamn/Condroitn/C/Mn/[place] [[facility]vs Glucosamine Chondroitin Tb] 1 each PO DAILY 12/19/17 [History] Lactulose [Enulose] 15 ml PO BID 12/19/17 [History] Levothyroxine [Synthroid] 112 mcg PO 0630 12/19/17 [History] Memantine HCl 5 mg PO BID 12/19/17 [History] Mv-Min/FA/Vit K/Lycop/Lut/Zeax [Ocuvite Eye Plus Multi Tablet] 1 each PO DAILY 12/19/17 [History] Mycophenolate Mofetil [Cellcept] 250 mg PO BID 12/19/17 [History] Spironolactone [Aldactone] 50 mg PO DAILY 12/19/17 [History] Ursodiol 600 mg PO BID 12/20/17 [History] Calcium Carbonate [Tums] 177 mg PO QDPC 03/08/18 [History] Rifaximin [Xifaxan] 550 mg PO BID 03/08/18 [History] Allergy/AdvReac Type Severity Reaction Status Date / Time Sulfa (Sulfonamide Allergy Hives Verified 09/01/18 14:14 Antibiotics) All Systems PM: A 10-system review of systems was performed and is negative for pertinent findings except as documented above in the HPI. - Constitutional Constitutional: falls, no chills, no fever(s), no night sweats - EENT Eyes: no change in vision, no discharge, no pain, no photophobia Ears: no ear discharge, no ear pain, no tinnitus Nose, mouth and throat: no dysphagia, no nasal discharge, no neck pain, no sore throat - Cardiovascular Cardiovascular ROS IM: no chest pain, no diaphoresis, no dyspnea, no light headedness, no palpitations, no syncope - Respiratory Respiratory: no cough, no dyspnea, no wheezing, no excessive phlegm production - Gastrointestinal Gastrointestinal: no abdominal pain, no diarrhea, no hematemesis, no hematochezia, no melena, no nausea, no vomiting - Genitourinary Genitourinary: no change in urinary stream, no dysuria, no flank pain, no hematuria - Musculoskeletal Musculoskeletal ROS IM: joint swelling, limited range of motion, other (left shoulder pain), no numbness, no tingling - Integumentary Integumentary IM: no rash, no unusual bruising - Neurological Neurological ROS: no confusion, no convulsions, no focal weakness, no numbness, no tingling, no tremor(s) - Hematologic/Lymphatic Hematologic/Lymphatic: easy bruising - Constitutional General appearance: Present: cooperative, mild distress, A&O X 3, pleasant, answers questions appropriately Exam: General: Patient is alert, no acute distress, oriented x 3 Head: atraumatic, normocephalic, ENT: Mucous membranes moist Eye: normal appearance, PERRL, scleral icterus, no conjunctival injection Neck: normal inspection, trachea midline, full ROM, no carotid bruits Chest: normal inspection, symmetric chest rise Respiratory: Good respiratory effort. Normal breath sounds. No wheezing or crackles. Cardiovascular: Regular rate and rhythm. s1 and s2 normal pansystolic murmur. Pedal edema present Abdomen: Abdomen is soft, nontender. Ascites present. Bowel sounds are present Musculoskeletal: Left shoulder tenderness. Left upper extremity in brace. Skin: warm, dry, intact. Neuro: Alert oriented x 3 normal cranial nerves, no focal deficits Psych: Patient's affect is normal Internal Med - H&P Results - Impressions X-ray of the left shoulder shows anterior inferior dislocation of humerus with fracture of the greater tuberosity - Assessment and plan (1) Shoulder fracture, left Current Visit: Yes Status: Acute Assessment and plan: Acute left shoulder fracture. Patient needs reverse shoulder replacement per orthopedics. For now we will continue supportive care while we work her up prior to surgery. Pain control. Qualifiers: Encounter type: initial encounter Fracture type: closed Qualified Code(s): S42.92XA - Fracture of left shoulder girdle, part unspecified, initial encounter for closed fracture (2) Preoperative clearance Current Visit: Yes Status: Acute Assessment and plan: Patient has history of liver cirrhosis, also has a systolic murmur. Per echocardiogram done last year, she had an EF of 60-65% with mild MR, [id number] aortic stenosis. This the cause of her murmur. We will obtain repeat echocardiogram. Evaluate for any changes. Patient however does not describe any shortness of breath with exertion and is easily able to climb a flight of stairs. She does have high risk for postoperative complications due to her cirrhosis and her being on chronic immunosuppressants. She would be at intermediate to high risk for complications related to anesthesia and surgery. We will optimize her medically prior to surgery. Obtain chest x-ray and EKG. (3) Primary biliary cirrhosis Current Visit: Yes Status: Acute Assessment and plan: Patient reports history of primary biliary cirrhosis. She does take ursodiol, lactulose and rifaximin at home. We will continue these medications. Patient also has pancytopenia per history of lung with portal hypertension. We will obtain CBC and basic panel. Patient does have high risk for bleeding. Check PT/INR. (4) Autoimmune liver disease Current Visit: Yes Status: Chronic Assessment and plan: Patient is on CellCept and prednisone. Will continue. Check CBC and compensated. (5) CKD (chronic kidney disease), stage III Current Visit: Yes Status: Chronic Assessment and plan: Patient with history of chronic kidney disease stage III. Will obtain basic panel to review. (6) DVT prophylaxis Current Visit: Yes Status: Acute Assessment and plan: With SCD - Time Spent With Patient Total time spent is greater than 50% in coordination of care (as documented) at patient's floor/unit and/or counseling patient:
[2018-09-01 18:09] LABS: Mean Platelet Volume 10.7 fL (9.4-12.4); Monocytes % 11.2 %
[2018-09-01 18:11] LABS: Basophils % 0.4 %; Eosinophils # 0.1 K/mcL (0.0-0.6); Hematocrit 32.5 % (35.3-44.9); Hemoglobin 10.4 g/dL (11.5-15.4); Immature Granulocytes % 0.7 % (0-4); Immature Platelets 1.7 % (1.1-6.1); Lymphocytes # 0.7 K/mcL (0.6-4.6); Lymphocytes % 10.5 %; Mean Corpuscular Hemoglobin 31.7 pg (28.0-33.3); Mean Corpuscular Volume 99.1 fL (83.0-100.0); Monocytes # 0.8 K/mcL (0.0-1.3); Neutrophils # 5.2 K/mcL (1.6-8.9); Red Blood Count 3.28 M/mcL (3.82-4.97); Red Cell Distribution Width 15.3 % (11.5-14.5); Segmented Neutrophils % 76.2 %
[2018-09-01 18:13] LABS: INR 1.4; Prothrombin Time 15.7 Seconds (9.4-12.1)
[2018-09-01 18:23] LABS: Albumin 3.1 g/dL (3.5-5.7); Albumin/Globulin Ratio 1.3 (1.1-2.2); Calcium 8.8 mg/dL (8.6-10.3); Globulin 2.4 g/dL (2.4-3.5); Potassium 3.6 mEq/L (3.5-5.1); Total Protein 5.5 g/dL (6.4-8.9)
[2018-09-01 18:33] LABS: Thyroid Stimulating Hormone 3.291 mcIU/mL (0.340-5.600)
[2018-09-01 18:37] LABS: Platelet Count 71 K/mcL (140-400)
[2018-09-01 19:12] LABS: Platelet Estimate Marked Decrease (Normal)
[2018-09-01] MEDS: OXYCODONE Oral CONC 10 MG/0.5 ML ORAL.SYG SL PRN (19:12)
[2018-09-01] MEDS: Lactulose Oral Soln 20 GM/30 ML UDC PO SCH (20:52)
[2018-09-02] MEDS: OXYCODONE Oral CONC 10 MG/0.5 ML ORAL.SYG SL PRN ×2 (04:22→13:08)
[2018-09-02] MEDS: Ondansetron 4 MG/2 ML VIAL IVP PRN (09:49)
--- NOTE | 2018-09-02 10:23 | Orthopedics Progress Note ---
Date of Encounter: 09/02/18 Time of Encounter: 10:22 Subjective Interval history: No overnight events. Patient sustained a left shoulder fracture dislocation and is scheduled for left reverse total shoulder for fracture with Dr. Duenas on Tuesday. Medical optimization prior to surgery. Continue with current medical management. Nothing by mouth Tuesday night after midnight. Objective Vital signs: Vital Signs Temp Pulse Resp BP Pulse Ox 09/02/18 07:04 97.4 F L 70 15 131/70 94 09/02/18 04:00 97.5 F L 77 16 148/71 95 09/01/18 22:57 97.7 F 82 18 142/57 91 09/01/18 18:55 97.5 F L 76 18 131/63 96 09/01/18 18:02 97.5 F L 73 15 132/58 96 Intake and Output 09/01/18 09/02/18 09/02/18 23:59 07:59 15:59 Intake Total 240 / 240 Output Total 300 / 300 Balance 240 / 240 -300 / -300 Intake: Oral 240 / 240 Output: Urine 300 / 300 Other: Meal Dinner Percent of Meal Consumed 40% Weight 90.6 kg 87.4 kg Patient Weight 09/02/18 23:59 Weight 87.4 kg - Labs CBC & BMP: 09/01/18 17:50 09/01/18 17:50 Labs: Abnormal lab results RBC 3.28 M/mcL (3.82-4.97) L 09/01/18 17:50 Hgb 10.4 g/dL (11.5-15.4) L 09/01/18 17:50 Hct 32.5 % (35.3-44.9) L 09/01/18 17:50 RDW 15.3 % (11.5-14.5) H 09/01/18 17:50 Plt Count 71 K/mcL (140-400) L 09/01/18 17:50 Platelet Estimate Marked Decrease (Normal) L 09/01/18 17:50 PT 15.7 Seconds (9.4-12.1) H 09/01/18 17:50 Chloride 113 mEq/L (98-107) H 09/01/18 17:50 Carbon Dioxide 21 mEq/L (23-29) L 09/01/18 17:50 BUN 44 mg/dL (8-23) H 09/01/18 17:50 Creatinine 1.43 mg/dL (0.60-1.20) H 09/01/18 17:50 Est GFR ( Amer) 44 (> 60) L 09/01/18 17:50 Est GFR (Non-Af Amer) 36 (> 60) L 09/01/18 17:50 BUN/Creatinine Ratio 31 (6-26) H 09/01/18 17:50 Glucose 142 mg/dL (70-105) H 09/01/18 17:50 Calculated Osmolality 308 (280-300) H 09/01/18 17:50 Total Bilirubin 5.0 mg/dL (0.3-1.0) H 09/01/18 17:50 AST 41 Units/L (13-39) H 09/01/18 17:50 Alkaline Phosphatase 117 Units/L (34-104) H 09/01/18 17:50 Serum Total Protein 5.5 g/dL (6.4-8.9) L 09/01/18 17:50 Albumin 3.1 g/dL (3.5-5.7) L 09/01/18 17:50 Consult Discharge Plan - Plan Referrals: NONE,PCP [Primary Care Provider] -
[2018-09-02] MEDS: Lactulose Oral Soln 20 GM/30 ML UDC PO SCH ×2 (10:52→21:01)
--- NOTE | 2018-09-02 11:16 | Internal Med Progress Note ---
Hospitalist Progress Note - Encounter Date of Encounter: 09/02/18 Time of Encounter: 09:10 - Subjective Interval History: Patient in mild distress. Complains mainly of nausea. She has also had some hemoptysis/ hematemesis and has spots of blood on tissue paper is at her bedside. She reports that she feels miserable. Denies any abdominal pain or chest pain. Her pain in the left shoulder is currently controlled. - Exam Vitals: Temp Pulse Resp BP Pulse Ox 97.4 F L 70 15 131/70 94 09/02/18 07:04 09/02/18 07:04 09/02/18 07:04 09/02/18 07:04 09/02/18 07:04 Exam: General: Patient is alert, no acute distress, oriented x 3 ENT: Mucous membranes moist, scleral icterus Respiratory: Good respiratory effort. Normal breath sounds. No wheezing or crackles. Cardiovascular: Regular rate and rhythm. s1 and s2 normal and pansystolic murmur. No pedal edema Abdomen: Abdomen is soft, nontender. Bowel sounds are present Musculoskeletal: Left upper extremity in a brace. Skin: warm, dry, intact, jaundice Neuro: Alert oriented x 3 normal cranial nerves, no focal deficits - Assessment and Plan (1) Shoulder fracture, left Current Visit: Yes Status: Acute Assessment and Plan: Patient with left shoulder fracture needing surgery. Orthopedics following. Teofilo fuller remains at intermediate to high risk for complications from anesthesia and surgery due to her underlying liver cirrhosis. Surgery planned for tomorrow. (2) Preoperative clearance Current Visit: Yes Status: Acute Assessment and Plan: 2-D echocardiogram done yesterday. Awaiting results. (3) Primary biliary cirrhosis Current Visit: Yes Status: Acute Assessment and Plan: chronic.continue home medications including lactulose, ursodiol. Patient also has portal hypertension and thrombocytopenia. Platelet counts at 71. Chronic and stable. PT 15.7 and INR is 1.4. (4) Autoimmune liver disease Current Visit: Yes Status: Chronic Assessment and Plan: Continue cellcept and prednisone once dose clarified (5) CKD (chronic kidney disease), stage III Current Visit: Yes Status: Chronic Assessment and Plan: Creatinine at baseline. 1.43. (6) DVT prophylaxis Current Visit: Yes Status: Acute Assessment and Plan: With SCDs alone due to thrombocytopenia (7) Hemoptysis Current Visit: Yes Status: Acute Assessment and Plan: Likely due to mucosal bleed along with her thrombocytopenia and slightly prolonged INR. Will monitor for now. Chest x-ray does not show any acute process. - Time Spent with Patient Total time spent is greater than 50% in coordination of care (as documented) at patient's floor/unit and/or counseling patient: Internal Medicine: Result - Labs CBC & Chem 7: 09/01/18 17:50 09/01/18 17:50 Labs: Short CBC 09/01/18 Range/Units 17:50 WBC 6.8 (4.3-11.1) K/mcL Hgb 10.4 L (11.5-15.4) g/dL Hct 32.5 L (35.3-44.9) % Plt Count 71 L (140-400) K/mcL Neutrophils # 5.2 (1.6-8.9) K/mcL BMP 09/01/18 17:50 Sodium 142 Potassium 3.6 Chloride 113 H Carbon Dioxide 21 L BUN 44 H Creatinine 1.43 H Glucose 142 H Calcium 8.8 Liver Function 09/01/18 Range/Units 17:50 Total Bilirubin 5.0 H (0.3-1.0) mg/dL AST 41 H (13-39) Units/L ALT 26 (7-52) Units/L Alkaline Phosphatase 117 H (34-104) Units/L Albumin 3.1 L (3.5-5.7) g/dL - ABG Interpretation ABG results: PT/INR, D-dimer PT 15.7 Seconds (9.4-12.1) H 09/01/18 17:50 - Impressions Impressions Chest X-Ray 09/01/18 17:36 IMPRESSION: No acute cardiopulmonary process. Dislocation/fracture of the left shoulder. D/ / 09/01/2018 21:47:26 Darlin Rene MD / jonatan Interpreting Provider: Darlin Rene MD Consult Discharge Plan - Plan Referrals: NONE,PCP [Primary Care Provider] - (1) Shoulder fracture, left Qualifiers: Encounter type: initial encounter Fracture type: closed Qualified Code(s): S42.92XA - Fracture of left shoulder girdle, part unspecified, initial encounter for closed fracture
[2018-09-02] MEDS ORDERED: OXYCODONE Oral CONC 10 MG/0.5 ML ORAL.SYG SL ONE (17:07)
[2018-09-02] MEDS: predniSONE 5 MG TABLET PO SCH (17:35)
[2018-09-03] MEDS: OXYCODONE Oral CONC 10 MG/0.5 ML ORAL.SYG SL PRN ×3 (01:07→20:52)
[2018-09-03 03:09] LABS: Basophils % 0.4 %; Eosinophils # 0.2 K/mcL (0.0-0.6); Eosinophils % 2.4 %; Hematocrit 29.9 % (35.3-44.9); Hemoglobin 9.6 g/dL (11.5-15.4); Immature Granulocytes % 0.3 % (0-4); Lymphocytes % 11.1 %; Mean Corpuscular HGB Conc 32.1 g/dL (31.6-35.5); Mean Corpuscular Hemoglobin 31.7 pg (28.0-33.3); Mean Corpuscular Volume 98.7 fL (83.0-100.0); Mean Platelet Volume 10.6 fL (9.4-12.4); Monocytes # 0.6 K/mcL (0.0-1.3); Monocytes % 8.5 %; Neutrophils # 5.2 K/mcL (1.6-8.9); Red Blood Count 3.03 M/mcL (3.82-4.97); Red Cell Distribution Width 15.5 % (11.5-14.5); Segmented Neutrophils % 77.3 %
[2018-09-03 03:10] LABS: Lymphocytes # 0.7 K/mcL (0.6-4.6); Platelet Count 64 K/mcL (140-400)
[2018-09-03 03:30] LABS: Calcium 8.5 mg/dL (8.6-10.3); Potassium 4.1 mEq/L (3.5-5.1)
[2018-09-03] MEDS ORDERED: Ringers Solution, Lactated 1,000 ML IVC SCH (08:30)
[2018-09-03] MEDS: Lactulose Oral Soln 20 GM/30 ML UDC PO SCH ×3 (09:11→20:52)
[2018-09-03] MEDS: predniSONE 5 MG TABLET PO SCH (09:11)
--- NOTE | 2018-09-03 11:58 | Cardiology Consult Note ---
Date of Encounter: 09/03/18 Time of Encounter: 10:00 Assessment and Plan (1) Preoperative cardiovascular examination Current Visit: Yes Status: Acute Patient with poor functional status and documented moderate aortic stenosis over 6 months ago, will need both a stress test for risk stratification of coronary artery disease, and a repeat echocardiogram to rule out severe aortic stenosis. (2) Aortic stenosis Current Visit: Yes Status: Chronic Patient had moderate over 6 months ago, we will need a good quality echocardiogram to document progression or otherwise of aortic stenosis. If transthoracic echocardiogram will not be sufficient, a AUGUSTO would be indicated. Meanwhile avoid vasodilators and diurese cautiously. Qualifiers: Cardiac valve disease etiology: nonrheumatic Qualified Code(s): I35.0 - Nonrheumatic aortic (valve) stenosis (3) CKD (chronic kidney disease), stage III Current Visit: Yes Status: Chronic Discussion w patient/family: The assessment and plan as outlined above was discussed with the patient and/or family members who expressed understanding and agreement. All questions were answered. Thank you for involving us in the care of your patient. Please call with any questions. History of Present Illness Consult date: 09/03/18 Requesting physician: Priyank Weinstein Consult reason: Preoperative cardiovascular evaluation History of present illness: Ms. Kent is a 73 year old female Ms. Kent is a pleasant 73-year-old female with history of hypertension, CKD, was admitted for left shoulder injury and being planned for operative repair. She has no chest pain, palpitations or shortness of breath at this time, however, she is unable to walk up a flight of stairs without getting short of breath. She does not have a recent stress test or cardiac catheterization. She does have an echocardiogram done December 2017 which showed moderate aortic stenosis. She reports shortness of breath, but no angina. She has had syncope in the past but she reports in the setting of phlebotomy. Past Med Surg Social Fam HX - Past Medical History Medical history: CHF, liver disease, other Additional medical history: heart murmur Psychiatric history: no psych history - Past Surgical History Surgical History: cholecystectomy - Social History Smoking Status: Never smoker Smokeless Tobacco Status: No Alcohol use: none Drug use: none - Family History Mother Living Status: Hx Family Cardiac Disorders: Yes (CHF) Medications and Allergies Cholecalciferol (D-3) [Vitamin D] 5,000 unit PO QWEEK 12/19/17 [History] Furosemide [Lasix] 40 mg PO BID 12/19/17 [History] Glucosamn/Condroitn/C/Mn/[place] [[facility]vs Glucosamine Chondroitin Tb] 1 each PO DAILY 12/19/17 [History] Lactulose [Enulose] 15 ml PO BID 12/19/17 [History] Levothyroxine [Synthroid] 112 mcg PO 0630 12/19/17 [History] Memantine HCl 5 mg PO BID 12/19/17 [History] Mv-Min/FA/Vit K/Lycop/Lut/Zeax [Ocuvite Eye Plus Multi Tablet] 1 each PO DAILY 0 12/19/17 [History] Mycophenolate Mofetil [Cellcept] 250 mg PO BID 12/19/17 [History] Spironolactone [Aldactone] 50 mg PO DAILY 12/19/17 [History] Ursodiol 600 mg PO BID 12/20/17 [History] Calcium Carbonate [Tums] 177 mg PO QDPC 03/08/18 [History] Rifaximin [Xifaxan] 550 mg PO BID 03/08/18 [History] Allergy/AdvReac Type Severity Reaction Status Date / Time Sulfa (Sulfonamide Allergy Hives Verified 09/01/18 14:14 Antibiotics) All Systems Review: The remainder of the systems were reviewed and are negative - Constitutional Constitutional: no anorexia, no fever(s) - EENT Eyes: no blurred vision - Cardiovascular Cardiovascular: no as per HPI, no chest pain at rest, no dyspnea at rest, no palpitations - Respiratory Respiratory: no cough - Gastrointestinal Gastrointestinal: no abdominal pain - Neurological Neurological: no abnormal speech - Hematological/Lymphatic Hematologic/Lymphatic: no easy bleeding Physical Examination Vital Signs, Last 4 Hours Temp Pulse Resp BP Pulse Ox 09/03/18 10:30 97.5 F L 73 15 146/73 96 General: Conversant, No Apparent Distress HEENT: Atraumatic Cardiac: Reg Rate and Rhythm, Other (Grade 3/6 crescendo decrescendo ejection mid to late peaking systolic murmur at the aortic area radiating to the carotids and the apex ) Lungs: Normal Breath Sounds, No Wheeze, Rales, Rhonchi Extremities: Other (Mild pedal edema bilaterally) Results 09/03/18 02:25 09/03/18 02:25 Lab Results 09/03/18 09/03/18 02:25 02:25 WBC 6.7 Hgb 9.6 L Hct 29.9 L Plt Count 64 L Sodium 139 Potassium 4.1 Chloride 110 H Carbon Dioxide 20 L BUN 52 H Creatinine 1.61 H Glucose 137 H Calcium 8.5 L Consult Discharge Plan - Plan Referrals: NONE,PCP [Primary Care Provider] -
--- NOTE | 2018-09-03 12:10 | Electrocardiograph Report ---
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
[2018-09-03] MEDS ORDERED: Lactulose 200 GM, Sodium Chloride IRRigation 700 ML RC PRN (14:07)
--- NOTE | 2018-09-03 14:10 | Internal Med Progress Note ---
Hospitalist Progress Note - Encounter Date of Encounter: 09/03/18 Time of Encounter: 14:06 - Subjective Interval History: I evaluated patient earlier today. She was in moderate distress due to pain from her left hip. She was also confused per the nursing staff. She has not had a bowel movement since admission. She reports pain in the left upper extr emity. Echocardiogram was done but good images were not able to be acting. No fever or chills reported overnight. - Exam Vitals: Temp Pulse Resp BP Pulse Ox 97.5 F L 73 15 146/73 96 09/03/18 10:30 09/03/18 10:30 09/03/18 10:30 09/03/18 10:30 09/03/18 10:30 Exam: General: Patient is alert, moderate distress, oriented x 2 ENT: Mucous membranes moist Respiratory: Good respiratory effort. Normal breath sounds. No wheezing or crackles. Cardiovascular: Regular rate and rhythm. s1 and s2 normal . Systolic murmur. No pedal edema Abdomen: Abdomen is soft, nontender. Bowel sounds are present Musculoskeletal: Pain in left upper extremity Skin: warm, dry, intact. jaundice Neuro: Alert oriented x 2 normal cranial nerves, no focal deficits - Assessment and Plan (1) Shoulder fracture, left Current Visit: Yes Status: Acute Assessment and Plan: Left upper extremity in sling and race. Tender to palpation. Awaiting surgery pending preoperative clearance. Continue pain medications to control pain. High risk for complications. (2) Acute hepatic encephalopathy Current Visit: Yes Status: Acute Assessment and Plan: Patient having confusion and features suggestive of hepatic encephalopathy. Ammonia levels are elevated. We will increase lactulose dose. If no bowel movements for this, will prescribe lactulose enema. (3) Preoperative clearance Current Visit: Yes Status: Acute Assessment and Plan: Unable to obtain good images on echocardiogram due to patient positioning. Consulted cardiology. Cardiology recommendations appreciated. We will obtain stress test and repeat echocardiogram with limited views to have a better look at the aortic valve. Concern for worsening of aortic stenosis. (4) Primary biliary cirrhosis Current Visit: Yes Status: Acute Assessment and Plan: Continue supportive care with home medications including ursodiol. (5) Autoimmune liver disease Current Visit: Yes Status: Chronic Assessment and Plan: Continue CellCept and prednisone (6) CKD (chronic kidney disease), stage III Current Visit: Yes Status: Chronic Assessment and Plan: Renal function slightly worse today. Will hydrate gently (7) DVT prophylaxis Current Visit: Yes Status: Acute Assessment and Plan: Patient on SCDs due to thrombocytopenia (8) Hemoptysis Current Visit: Yes Status: Resolved Assessment and Plan: This seems to have resolved now. - Time Spent with Patient Total time spent is greater than 50% in coordination of care (as documented) at patient's floor/unit and/or counseling patient: Internal Medicine: Result - Labs CBC & Chem 7: 09/03/18 02:25 09/03/18 02:25 Labs: Short CBC 09/03/18 Range/Units 02:25 WBC 6.7 (4.3-11.1) K/mcL Hgb 9.6 L (11.5-15.4) g/dL Hct 29.9 L (35.3-44.9) % Plt Count 64 L (140-400) K/mcL Neutrophils # 5.2 (1.6-8.9) K/mcL BMP 09/03/18 02:25 Sodium 139 Potassium 4.1 Chloride 110 H Carbon Dioxide 20 L BUN 52 H Creatinine 1.61 H Glucose 137 H Calcium 8.5 L - ABG Interpretation ABG results: PT/INR, D-dimer PT 15.7 Seconds (9.4-12.1) H 09/01/18 17:50 - Impressions Impressions Echocardiogram 09/01/18 17:35 Impressions: Exam was not interpretable. Please repeat study when clinical situation improves. Findings: Study Quality * Exam was not interpretable. Please repeat study when clinical situation improves. Consult Discharge Plan - Plan Referrals: NONE,PCP [Primary Care Provider] - (1) Shoulder fracture, left Qualifiers: Encounter type: initial encounter Fracture type: closed Qualified Code(s): S42.92XA - Fracture of left shoulder girdle, part unspecified, initial encounter for closed fracture
[2018-09-03] MEDS: Ondansetron 4 MG/2 ML VIAL IVP PRN (23:36)
[2018-09-04] MEDS ORDERED: *HR* Promethazine 25 MG/ML VIAL IVP ONE (00:05)
[2018-09-04 00:36] LABS: Hematocrit 31.3 % (35.3-44.9); Hemoglobin 10.2 g/dL (11.5-15.4); Mean Corpuscular HGB Conc 32.6 g/dL (31.6-35.5); Mean Corpuscular Hemoglobin 31.6 pg (28.0-33.3); Mean Corpuscular Volume 96.9 fL (83.0-100.0); Mean Platelet Volume 10.1 fL (9.4-12.4); Red Blood Count 3.23 M/mcL (3.82-4.97); Red Cell Distribution Width 15.3 % (11.5-14.5)
[2018-09-04 00:37] LABS: Platelet Count 82 K/mcL (140-400)
[2018-09-04 00:53] LABS: Albumin 3.1 g/dL (3.5-5.7); Albumin/Globulin Ratio 1.3 (1.1-2.2); Bilirubin,Direct 3.3 mg/dL (0.0-0.2); Bilirubin,Indirect 5.2 mg/dL (0.0-1.2); Bilirubin,Total 8.5 mg/dL (0.3-1.0); Calcium 8.8 mg/dL (8.6-10.3); Globulin 2.3 g/dL (2.4-3.5); Potassium 3.8 mEq/L (3.5-5.1); Total Protein 5.4 g/dL (6.4-8.9)
[2018-09-04] MEDS: Pantoprazole 40 MG in 0.9 % Sodium Chloride Mini Bag 100 ML IVC SCH ×5 (01:00→21:40)
[2018-09-04 04:58] LABS: Basophils # 0.1 K/mcL (0.0-0.2); Basophils % 0.5 %; Eosinophils # 0.1 K/mcL (0.0-0.6); Hematocrit 29.9 % (35.3-44.9); Hemoglobin 9.7 g/dL (11.5-15.4); Immature Granulocytes % 0.9 % (0-4); Lymphocytes # 0.7 K/mcL (0.6-4.6); Lymphocytes % 6.4 %; Mean Corpuscular HGB Conc 32.4 g/dL (31.6-35.5); Mean Corpuscular Hemoglobin 31.6 pg (28.0-33.3); Mean Corpuscular Volume 97.4 fL (83.0-100.0); Mean Platelet Volume 9.8 fL (9.4-12.4); Monocytes # 1.1 K/mcL (0.0-1.3); Monocytes % 10.5 %; Neutrophils # 8.4 K/mcL (1.6-8.9); Red Blood Count 3.07 M/mcL (3.82-4.97); Red Cell Distribution Width 15.5 % (11.5-14.5); Segmented Neutrophils % 80.7 %
[2018-09-04 04:59] LABS: Platelet Count 72 K/mcL (140-400)
--- NOTE | 2018-09-04 06:23 | Event Note ---
Date of Encounter: 09/03/18 Time of Encounter: 23:24 Alerted by patient's nurse JOSIE Monroe that the patient was coughing up blood and requested that I come see the patient. Immediately went to see the pt. who was in bed in the high Maradiaga's position holding an emesis bag and actively coughing and vomiting. Emesis bag contained some sputum w/bright red blood as well as stomach contents and bile. Pt. was altered on exam and provided minimal verbal answers during questioning. Pts. ammonia level was 125 earlier in the day w/no re-check until 04:00 in the a.m. Last lactulose was given approximately at 21:00. Nurse reported no BM for the past day. Pts. Hgb noted to be 9.6, down from 10.4 on 09/01. IVP Zofran ordered and administered to help control pts. nausea which was not effective. IVP Phenergan ordered and administered. Protonix drip ordered. EKG ordered which showed sinus rhythm with septal myocardial infarction, probably old. Continuous cardiac telemetry ordered. Stat ammonia, CBC, and CMP ordered. Ammonia returned at 152. Discussed pt. w/Drs. Fuller and Natalie w/recommendation for stat CT of the abdomen/pelvis to assess for possible SBO. No order for lactulose placed d/t concern for SBO or ileus. Results showed air-fluid levels in nondistended loops of distal small bowel. No pattern of obstruction. Findings are suspected to represent enteritis. Proximal colon is distended and air-filled. No mucosal abnormality. Cirrhosis with several low attenuating foci in the left hepatic lobe that cannot be characterized on this noncontrast exam. Outpatient follow-up was recommended with liver MRI. Limited evaluation of the left upper quadrant due to lack of contrast and significant patient motion contributing to artifact. There are 2 questionable soft tissue structures that may represent volume averaging of adjacent structures. Possibility of a mass cannot be excluded. Consider outpatient follow-up CT of the abdomen with contrast. NPO ordered. GI consult ordered but not confirmed d/t time of night ordered. A.M. TEAM TO CONFIRM GI CONSULT d/t bleeding that cannot be sourced as hematemesis or hemoptysis. Protonix drip ordered. Ammonia drawn at 04:35 was 99. Repeat ordered. New Hgb 9.7. Pt. typed and screened which showed A positive with negative antibody screen. Nurse instructed to continue to monitor pt. closely and notify me immediately of any adverse changes, changes in mentation, or continued N/V/hematemesis/hemoptysis.
--- NOTE | 2018-09-04 08:02 | Orthopedics Progress Note ---
Date of Encounter: 09/04/18 Time of Encounter: 08:01 Subjective Interval history: Patient seen this morning, advance of early a.m. reviewed, patient is resting comfortably now. Patient with fracture dislocation of left shoulder. Patient's medical condition is priority, but when patient is cleared for surgery we will proceed if that is still the plan as per the family. Objective Vital signs: Vital Signs Temp Pulse Resp BP Pulse Ox 09/04/18 08:00 97.8 F 96 16 114/57 96 09/04/18 03:30 97.7 F 98 16 144/80 94 09/04/18 01:09 85 14 143/82 97 09/04/18 00:43 86 14 141/82 97 09/04/18 00:32 98 09/04/18 00:31 97.5 F L 86 13 161/81 98 09/03/18 23:01 98.3 F 88 18 160/77 93 09/03/18 20:50 95 09/03/18 19:08 97.8 F 82 14 153/74 95 09/03/18 15:12 97.9 F 79 17 151/76 97 09/03/18 10:30 97.5 F L 73 15 146/73 96 Intake and Output 09/03/18 09/04/18 09/04/18 23:59 07:59 15:59 Intake Total 550 / 550 100 / 100 Output Total 0 / 0 425 / 425 Balance 550 / 550 -325 / -325 Intake: IV Fluids 100 / 100 Protonix 40 MG In 0.9 % Sodium 100 / 100 Chloride (Mini-Bag +) 100 ML @ 20 mls/hr IVC .Q5H [facility] Rx#: [id number] Oral 550 / 550 0 / 0 Output: Urine 0 / 0 100 / 100 Emesis 325 / 325 Other: # Voids 1 # Urine Diapers 1 Weight 84.9 kg Patient Weight 09/04/18 23:59 Weight 84.9 kg - Labs CBC & BMP: 09/04/18 04:35 09/04/18 04:35 Labs: Abnormal lab results RBC 3.07 M/mcL (3.82-4.97) L 09/04/18 04:35 Hgb 9.7 g/dL (11.5-15.4) L 09/04/18 04:35 Hct 29.9 % (35.3-44.9) L 09/04/18 04:35 RDW 15.5 % (11.5-14.5) H 09/04/18 04:35 Plt Count 72 K/mcL (140-400) L 09/04/18 04:35 Platelet Estimate Marked Decrease (Normal) L 09/01/18 17:50 PT 15.7 Seconds (9.4-12.1) H 09/01/18 17:50 Chloride 111 mEq/L (98-107) H 09/04/18 04:35 Carbon Dioxide 20 mEq/L (23-29) L 09/04/18 04:35 BUN 55 mg/dL (8-23) H 09/04/18 04:35 Creatinine 1.83 mg/dL (0.60-1.20) H 09/04/18 04:35 Est GFR ( Amer) 33 (> 60) L 09/04/18 04:35 Est GFR (Non-Af Amer) 27 (> 60) L 09/04/18 04:35 BUN/Creatinine Ratio 30 (6-26) H 09/04/18 04:35 Glucose 164 mg/dL (70-105) H 09/04/18 04:35 Calculated Osmolality 311 (280-300) H 09/04/18 04:35 Total Bilirubin 8.5 mg/dL (0.3-1.0) H 09/04/18 00:12 Direct Bilirubin 3.3 mg/dL (0.0-0.2) H 09/04/18 00:12 Indirect Bilirubin 5.2 mg/dL (0.0-1.2) H 09/04/18 00:12 AST 43 Units/L (13-39) H 09/04/18 00:12 Alkaline Phosphatase 114 Units/L (34-104) H 09/04/18 00:12 Ammonia 100 mcmol/L (16-53) H 09/04/18 06:20 Serum Total Protein 5.4 g/dL (6.4-8.9) L 09/04/18 00:12 Albumin 3.1 g/dL (3.5-5.7) L 09/04/18 00:12 Globulin 2.3 g/dL (2.4-3.5) L 09/04/18 00:12 Consult Discharge Plan - Plan Referrals: NONE,PCP [Primary Care Provider] -
--- NOTE | 2018-09-04 08:42 | Event Note ---
Addendum entered and electronically signed by JERRY Garcia 09/04/18 10:02: Patient not appropriate for surgery today. Will postpone until 09/06 and plan for surgery then if patient's medical condition improves. Will continue to follow. Original Note: Date of Encounter: 09/04/18 Time of Encounter: 08:40 S/w cardiopulm - patient received echo this am S/w Dr. Guzman re: echo - not available for read yet. Notified Dr. Guzman of patient's plan for surgery. She states will read when becomes available in light of patient's surgical plan. Awaiting GI consultation and hospitalist evaluation for risk stratification. Appreciate all input.
[2018-09-04] MEDS: predniSONE 5 MG TABLET PO SCH (10:59)
[2018-09-04] MEDS: Lactulose Oral Soln 20 GM/30 ML UDC PO SCH ×4 (10:59→22:51)
[2018-09-04] MEDS ORDERED: Furosemide 20 MG/2 ML VIAL IVP ONE (11:16)
--- NOTE | 2018-09-04 11:31 | Cardiology Progress Note ---
Date of Encounter: 09/04/18 Time of Encounter: 11:28 Assessment and Plan (1) Preoperative cardiovascular examination Current Visit: Yes Status: Acute Patient represents a moderate risk candidate for this moderate risk orthopedic surgical procedure. LVEF is normal. is mild to moderate, which simply needs to be monitored. No active CHF or ACS/angina. Comoribities include A/CKD and possible GI issues. Further preoperative testing is unlikely to alter patient's surgical risk. Cardiology will sign off. Call with questions or concerns. (2) Aortic stenosis Current Visit: Yes Status: Chronic Mild to moderate . Continue to monitor, no intervention is required at this time. Qualifiers: Cardiac valve disease etiology: nonrheumatic Qualified Code(s): I35.0 - Nonrheumatic aortic (valve) stenosis Discussion w patient/family: The assessment and plan as outlined above was discussed with the patient and/or family members who expressed understanding and agreement. All questions were ans wered. Thank you for involving us in the care of your patient. Please call with any questions. Subjective Principal diagnosis: Preop Interval history: 73 year old admitted for fall, asked to see preoperatively prior to surgery. Now being seen by GI for possible hemoptysis, abnormal amoonia/LFTs. ? GI source. Hg stable. Comorbidities include A/CKD. Repeat limited TTE - normal LVEF, mild to moderate . Objective Vital Signs, Last 4 Hours Temp Pulse Resp BP Pulse Ox 09/04/18 08:00 97.8 F 96 16 114/57 96 HEENT: Atraumatic, Normocephaly, Mucus Membranes Moist Neck: No JVD Cardiac: Reg Rate and Rhythm, Normal S1 and S2, Other (Mild RUEL) Lungs: Normal Breath Sounds, No Wheeze, Rales, Rhonchi Neuro: Alert and responsive, No focal deficits noted Abdomen: Soft, Non-Tender Skin: No rashes noted on visualized skin Musculoskeletal: No Chest Wall Tenderness Extremities: No Clubbing, No Cyanosis, No Edema Results 09/04/18 04:35 09/04/18 04:35 Lab Results 09/04/18 09/04/18 09/04/18 00:12 00:12 04:35 WBC 10.4 D 10.4 Hgb 10.2 L 9.7 L Hct 31.3 L 29.9 L Plt Count 82 L 72 L Sodium 141 Potassium 3.8 Chloride 110 H Carbon Dioxide 17 L BUN 54 H Creatinine 1.80 H Glucose 146 H Calcium 8.8 Total Bilirubin 8.5 H AST 43 H ALT 27 Alkaline Phosphatase 114 H 09/04/18 04:35 WBC Hgb Hct Plt Count Sodium 141 Potassium 4.0 Chloride 111 H Carbon Dioxide 20 L BUN 55 H Creatinine 1.83 H Glucose 164 H Calcium 9.0 Total Bilirubin AST ALT Alkaline Phosphatase - Imaging and Cardiology Echo: report reviewed - EKG Interpretation EKG results cardiology: personally reviewed Consult Discharge Plan - Plan Referrals: NONE,PCP [Primary Care Provider] -
--- NOTE | 2018-09-04 12:54 | Gastroenterology Consult Note ---
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 Continue home mycophenolate and prednisone for immunosuppression Will get paperwork from office visits Order right upper quadrant US Hgb 10.4 on admission > 9.7 today LDH to check for hemolysis Blood cultures Given rocephin Ammonia 152 > 100 today, continue lactulose and rifaximin Bilirubin 5 > 8.5 today (baseline around 5), continue to monitor AST 43, ALT 27 Alk Phos 117 > 114 today Patient has not had any more episodes of bloody vomiting, will hold off on EGD for now Keep NPO for now, will monitor tonight and reassess patient's clinical status in morning Patient's Cr gradually rising, would recommend nephrology consult Patient is not a good candidate for surgery at this time, recommend waiting until her liver function/bilirubin levels begin to normalize back to baseline Possibility of transfer to [place] with her bleach chlorinator if patient continues to decompensate (2) Anemia Status: Suspected Assessment and plan: Patient's Hgb 9.7, down from 10.4 on admission (baseline around 9.5) Check LDH for possible hemolysis Qualifiers: Anemia type: other cause Other causes of anemia: chronic disease, other Qualified Code(s): D63.8 - Anemia in other chronic diseases classified elsewhere - Time Spent With Patient Total time spent is greater than 50% in coordination of care (as documented) at patient's floor/unit and/or counseling patient: GI History of Present Illness - Data of Consult Consult date: 09/04/18 Requesting Physician: Priyank Weinstein MD - Consult Narrative Reason for consult: Vomiting blood History of present illness: Ms. Kent is a 73 year old female with PMHx of autoimmune hepatitis, CHF, aortic stenosis, CKD who presents with left shoulder fracture dislocation on 09/01. GI was consulted due to patient vomiting blood last night. Patient is very drowsy this morning. She reports she had some nausea last night and vomited with a tinge of blood. Patient denies any episodes of vomiting this morning. She denies nausea, abdominal pain, and diarrhea today. She denies ever vomiting blood in the past. She admits to having an endoscope around May 2018. She does have a history of autoimmune hepatitis and is treated by Dr. Maldonado in [place]. Her states it was a standard procedure recommended by Dr. Maldonado, and that she was not having any GI bleeding at that time. Patient's believes her last colonoscopy was 2 years ago. She denies history of smoking, alcohol, and drug use. She admits to left shoulder pain. She denies fevers/chills, CP, SOB, abdominal pain, nausea/vomiting, changes in bowel/bladder habits. Past Med Surg Social Fam HX - Past Medical History Medical history: CHF, liver disease, other Additional medical history: heart murmur Psychiatric history: no psych history - Past Surgical History Surgical History: cholecystectomy - Social History Smoking Status: Never smoker Smokeless Tobacco Status: No Alcohol use: none Drug use: none - Family History Mother Living Status: Hx Family Cardiac Disorders: Yes (CHF) - Constitutional Vitals: Temp Pulse Resp BP Pulse Ox 97.8 F 96 16 114/57 96 09/04/18 08:00 09/04/18 08:00 09/04/18 08:00 09/04/18 08:00 09/04/18 08:00 General appearance: Present: A&O X 3 Exam: drowsy - Respiratory Respiratory exam: Present: CTAB - Cardiovascular Cardiovascular exam: Present: RRR - GI/Abdominal GI/Abdominal exam: Present: normal bowel sounds, soft, no peritoneal signs. Absent: distended - Skin Additional comments: Jaundiced Results - Labs CBC & Chem 7: 09/04/18 04:35 09/04/18 04:35 Labs: Last Result Calcium 9.0 mg/dL (8.6-10.3) 09/04/18 04:35 Entire Visit Hgb 9.7 g/dL (11.5-15.4) L 09/04/18 04:35 Hct 29.9 % (35.3-44.9) L 09/04/18 04:35 PT 15.7 Seconds (9.4-12.1) H 09/01/18 17:50 Total Bilirubin 8.5 mg/dL (0.3-1.0) H 09/04/18 00:12 AST 43 Units/L (13-39) H 09/04/18 00:12 ALT 27 Units/L (7-52) 09/04/18 00:12 Ammonia 100 mcmol/L (16-53) H 09/04/18 06:20 - ABG ABG results: PT/INR, D-dimer PT 15.7 Seconds (9.4-12.1) H 09/01/18 17:50 - Impressions Impressions Chest X-Ray 09/03/18 23:33 IMPRESSION: Low lung volume due to inspiratory effort with crowding in the pulmonary hilum. Mild vascular congestion may be considered. Persistent fracture/dislocation at the left glenohumeral joint. D/ / Ryan Alexandre MD / Ryan Alexandre MD Interpreting Provider: Ryan Alexandre MD Abdomen/Pelvis CT 09/04/18 01:02 IMPRESSION: 1. Air-fluid levels in nondistended loops of distal small bowel. No pattern of obstruction. Findings are suspected to represent enteritis. 2. Proximal colon is distended and air-filled. No mucosal abnormality. 3. Cirrhosis with several low attenuating foci in the left hepatic lobe that can not be characterized on this noncontrast exam. Outpatient follow-up is recommended with liver MRI. 4. Limited evaluation of the left upper quadrant due to lack of contrast and significant patient motion contributing to artifact. There are 2 questionable soft tissue structures that may represent volume averaging of adjacent structures. Possibility of a mass can not be excluded. Consider outpatient follow-up CT of the abdomen with contrast. 5. Multiple compression fractures in the lumbar spine that are age indeterminate. Recommend correlation with history and physical exam. A follow-up MRI may be considered if there are acute symptoms. D/ / Ryan Alexandre MD / Ryan Alexandre MD Interpreting Provider: Ryan Alexandre MD Chest X-Ray 09/04/18 08:55 IMPRESSION: 1. No acute cardiopulmonary process. 2. Interstitial prominence potentially due to central vascular crowding, pulmonary vascular congestion, and/or chronic interstitial change. 3. Unchanged anterior dislocation of the left humerus in associated with a displaced fracture of its greater tuberosity. D/ / Raffy Samuels MD / Raffy Samuels MD Interpreting Provider: Raffy Samuels MD Consult Discharge Plan - Plan Referrals: NONE,PCP [Primary Care Provider] - <Kei Regalado - Last Filed: 09/08/18 06:11> Date of Encounter: 09/04/18 - Time Spent With Patient Total time spent is greater than 50% in coordination of care (as documented) at patient's floor/unit and/or counseling patient: GI History of Present Illness - Data of Consult Requesting Physician: Priyank Weinstein MD - Consult Narrative History of present illness: Ms. Kent is a 73 year old female - Constitutional Vitals: Temp Pulse Resp BP Pulse Ox 98.0 F 82 13 101/62 93 09/05/18 10:39 09/05/18 10:39 09/05/18 10:39 09/05/18 10:39 09/05/18 10:39 Results - Labs CBC & Chem 7: 09/05/18 07:50 09/05/18 07:50 Labs: Last Result Calcium 8.6 mg/dL (8.6-10.3) 09/05/18 07:50 Entire Visit Hgb 8.5 g/dL (11.5-15.4) L 09/05/18 07:50 Hct 26.5 % (35.3-44.9) L 09/05/18 07:50 PT 15.7 Seconds (9.4-12.1) H 09/01/18 17:50 Total Bilirubin 7.1 mg/dL (0.3-1.0) H 09/05/18 07:50 AST 57 Units/L (13-39) H 09/05/18 07:50 ALT 27 Units/L (7-52) 09/05/18 07:50 Ammonia 100 mcmol/L (16-53) H 09/04/18 06:20 - ABG ABG results: PT/INR, D-dimer PT 15.7 Seconds (9.4-12.1) H 09/01/18 17:50 - Attending Attestation I examined this patient and my medical decision-making was reviewed with the Resident Physician. I agree with the documented findings, disposition and treatment plan as described except to the extent set forth below.
[2018-09-04] MEDS ORDERED: OXYCODONE Oral CONC 10 MG/0.5 ML ORAL.SYG SL ONE (13:07)
[2018-09-04] MEDS ORDERED: *HR* FentaNYL PATCH 12 MCG PATCH TD SCH (13:15)
--- NOTE | 2018-09-04 15:29 | Internal Med Progress Note ---
Hospitalist Progress Note - Encounter Date of Encounter: 09/04/18 Time of Encounter: 15:27 - Subjective Interval History: Patient did not do well overnight. She developed episodes of hematemesis with bright red blood mixed with food. CT scan of the abdomen and pelvis was done which showed possible enteritis. This morning patient was lying down in bed and somnolent. Awoke but was confused. She did not have a bowel movement yet despite increased dose of lactulose. - Exam Vitals: Temp Pulse Resp BP Pulse Ox 97.8 F 96 16 114/57 96 09/04/18 08:00 09/04/18 08:00 09/04/18 08:00 09/04/18 08:00 09/04/18 08:00 Exam: General: Patient is somnolent, disoriented. Mild distress Eyes: Scleral icterus ENT: Mucous membranes moist Respiratory: Good respiratory effort. Normal breath sounds. No wheezing or crackles. Cardiovascular: Regular rate and rhythm. s1 and s2 normal No clicks, rubs, gallops, or murmurs. Pedal edema Abdomen: Abdomen is distended, nontender. Bowel sounds are present Musculoskeletal: Left upper extremity in brace. Tenderness at left shoulder Skin: warm, dry, intact. Jaundice present - Assessment and Plan (1) Acute hepatic encephalopathy Current Visit: Yes Status: Acute Assessment and Plan: Patient remains encephalopathic. Lactulose enema ordered. Gastroenterology consulted for recommendations. High risk for complications. (2) Shoulder fracture, left Current Visit: Yes Status: Acute Assessment and Plan: Patient with acute left shoulder fracture with dislocation. Orthopedics following and recommends reverse total shoulder arthroplasty. However patient has multiple comorbidities which increases her risk from any surgical intervention. Recommend to hold off on surgery for now. (3) Preoperative clearance Current Visit: Yes Status: Acute Assessment and Plan: Cardiology consult appreciated. Patient had moderate risk for cardiac complications. However with her liver cirrhosis and autoimmune hepatitis, she does have very high risk for intraoperative and postoperative complications. Gastroenterology input appreciated. Patient also appears to be decompensating with her liver disease. At this time, we will recommend holding off on surgery while we continue to stabilize the patient medically. (4) Autoimmune liver disease Current Visit: Yes Status: Chronic Assessment and Plan: Patient is currently on CellCept and prednisone. However she appears to be decompensating with elevated bilirubin. Gastroenterology following. 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 We will continue to monitor closely. Given her immunocompromise, GI recommended starting patient on ceftriaxone prophylactically. (5) Primary biliary cirrhosis Current Visit: Yes Status: Acute Assessment and Plan: Continue supportive care. On ursodiol. (6) CKD (chronic kidney disease), stage III Current Visit: Yes Status: Chronic Assessment and Plan: Renal function worsening. Possible hepatorenal syndrome. Stop spironolactone. Chest x-ray does show increased interstitial markings. Will give a small dose o f IV Lasix and assess response. (7) DVT prophylaxis Current Visit: Yes Status: Acute Assessment and Plan: With SCDs alone - Time Spent with Patient Total time spent is greater than 50% in coordination of care (as documented) at patient's floor/unit and/or counseling patient: Internal Medicine: Result - Labs CBC & Chem 7: 09/04/18 04:35 09/04/18 04:35 Labs: Short CBC 09/04/18 09/04/18 Range/Units 00:12 04:35 WBC 10.4 D 10.4 (4.3-11.1) K/mcL Hgb 10.2 L 9.7 L (11.5-15.4) g/dL Hct 31.3 L 29.9 L (35.3-44.9) % Plt Count 82 L 72 L (140-400) K/mcL Neutrophils # 8.4 (1.6-8.9) K/mcL BMP 09/04/18 09/04/18 00:12 04:35 Sodium 141 141 Potassium 3.8 4.0 Chloride 110 H 111 H Carbon Dioxide 17 L 20 L BUN 54 H 55 H Creatinine 1.80 H 1.83 H Glucose 146 H 164 H Calcium 8.8 9.0 Liver Function 09/04/18 Range/Units 00:12 Total Bilirubin 8.5 H (0.3-1.0) mg/dL Direct Bilirubin 3.3 H (0.0-0.2) mg/dL AST 43 H (13-39) Units/L ALT 27 (7-52) Units/L Alkaline Phosphatase 114 H (34-104) Units/L Albumin 3.1 L (3.5-5.7) g/dL - ABG Interpretation ABG results: PT/INR, D-dimer PT 15.7 Seconds (9.4-12.1) H 09/01/18 17:50 - Impressions Impressions Chest X-Ray 09/03/18 23:33 IMPRESSION: Low lung volume due to inspiratory effort with crowding in the pulmonary hilum. Mild vascular congestion may be considered. Persistent fracture/dislocation at the left glenohumeral joint. D/ / Ryan Alexandre MD / Ryan Alexandre MD Interpreting Provider: Ryan Alexandre MD Abdomen/Pelvis CT 09/04/18 01:02 IMPRESSION: 1. Air-fluid levels in nondistended loops of distal small bowel. No pattern of obstruction. Findings are suspected to represent enteritis. 2. Proximal colon is distended and air-filled. No mucosal abnormality. 3. Cirrhosis with several low attenuating foci in the left hepatic lobe that can not be characterized on this noncontrast exam. Outpatient follow-up is recommended with liver MRI. 4. Limited evaluation of the left upper quadrant due to lack of contrast and significant patient motion contributing to artifact. There are 2 questionable soft tissue structures that may represent volume averaging of adjacent structures. Possibility of a mass can not be excluded. Consider outpatient follow-up CT of the abdomen with contrast. 5. Multiple compression fractures in the lumbar spine that are age indeterminate. Recommend correlation with history and physical exam. A follow-up MRI may be considered if there are acute symptoms. D/ / Ryan Alexandre MD / Ryan Alexandre MD Interpreting Provider: Ryan Alexandre MD Chest X-Ray 09/04/18 08:55 IMPRESSION: 1. No acute cardiopulmonary process. 2. Interstitial prominence potentially due to central vascular crowding, pulmonary vascular congestion, and/or chronic interstitial change. 3. Unchanged anterior dislocation of the left humerus in associated with a displaced fracture of its greater tuberosity. D/ / Raffy Samuels MD / Raffy Samuels MD Interpreting Provider: Raffy Samuels MD Consult Discharge Plan - Plan Referrals: NONE,PCP [Primary Care Provider] - (2) Shoulder fracture, left Qualifiers: Encounter type: initial encounter Fracture type: closed Qualified Code(s): S42.92XA - Fracture of left shoulder girdle, part unspecified, initial encounter for closed fracture
[2018-09-04] MEDS: cefTRIAXone 1,000 MG in Water for inj. (sterile) 20 ML 10 ML IVP SCH (15:43)
--- NOTE | 2018-09-04 17:38 | Electrocardiograph Report ---
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
--- NOTE | 2018-09-04 18:47 | Orthopedics Progress Note ---
Date of Encounter: 09/04/18 Time of Encounter: 18:46 Subjective Principal diagnosis: Preop Interval history: Patient's condition will be reviewed with the hospitalist, patient is a candidate for a closed reduction. Unfortunately this will require sedation, if the patient shoulder is unstable the patient would require reverse shoulder replacement. This will be discussed with the hospitalist and the family. Objective Vital signs: Vital Signs Temp Pulse Resp BP Pulse Ox 09/04/18 15:54 98.0 F 87 14 125/50 93 09/04/18 08:00 97.8 F 96 16 114/57 96 09/04/18 03:30 97.7 F 98 16 144/80 94 09/04/18 01:09 85 14 143/82 97 09/04/18 00:43 86 14 141/82 97 09/04/18 00:32 98 09/04/18 00:31 97.5 F L 86 13 161/81 98 09/03/18 23:01 98.3 F 88 18 160/77 93 09/03/18 20:50 95 09/03/18 19:08 97.8 F 82 14 153/74 95 Intake and Output 09/04/18 09/04/18 09/04/18 07:59 15:59 23:59 Intake Total 100 / 100 605 / 605 10 / 10 Output Total 425 / 425 250 / 250 350 / 350 Balance -325 / -325 355 / 355 -340 / -340 Intake: IV Fluids 100 / 100 605 / 605 10 / 10 Protonix 40 MG In 0.9 % Sodium 100 / 100 200 / 200 Chloride (Mini-Bag +) 100 ML @ 20 mls/hr IVC .Q5H [facility] Rx#: [id number] Lactated Ringers 1,000 ML @ 75 405 / 405 mls/hr IVC .[id number] [facility] Rx#: [id number] Rocephin 1,000 MG In Water for 10 / 10 inj. (sterile) 10 ML @ 600 mls/ hr IVP DAILY [facility] Rx#:[id number] Oral 0 / 0 0 / 0 Output: Urine 100 / 100 Emesis 325 / 325 Catheter 250 / 250 350 / 350 Urethral (Quiros) 250 / 250 350 / 350 Other: Meal Breakfast Percent of Meal Consumed 0% Stool Size Large Large Stool Consistency liquid liquid Stool Characteristics Seedy Seedy Stool Color Brown Brown Bright Red Blood Blood Tinged # Bowel Movement Diapers 1 Weight 84.9 kg Patient Weight 09/04/18 23:59 Weight 84.9 kg - Labs CBC & BMP: 09/04/18 04:35 09/04/18 04:35 Labs: Abnormal lab results RBC 3.07 M/mcL (3.82-4.97) L 09/04/18 04:35 Hgb 9.7 g/dL (11.5-15.4) L 09/04/18 04:35 Hct 29.9 % (35.3-44.9) L 09/04/18 04:35 RDW 15.5 % (11.5-14.5) H 09/04/18 04:35 Plt Count 72 K/mcL (140-400) L 09/04/18 04:35 Platelet Estimate Marked Decrease (Normal) L 09/01/18 17:50 PT 15.7 Seconds (9.4-12.1) H 09/01/18 17:50 Chloride 111 mEq/L (98-107) H 09/04/18 04:35 Carbon Dioxide 20 mEq/L (23-29) L 09/04/18 04:35 BUN 55 mg/dL (8-23) H 09/04/18 04:35 Creatinine 1.83 mg/dL (0.60-1.20) H 09/04/18 04:35 Est GFR ( Amer) 33 (> 60) L 09/04/18 04:35 Est GFR (Non-Af Amer) 27 (> 60) L 09/04/18 04:35 BUN/Creatinine Ratio 30 (6-26) H 09/04/18 04:35 Glucose 164 mg/dL (70-105) H 09/04/18 04:35 Calculated Osmolality 311 (280-300) H 09/04/18 04:35 Total Bilirubin 8.5 mg/dL (0.3-1.0) H 09/04/18 00:12 Direct Bilirubin 3.3 mg/dL (0.0-0.2) H 09/04/18 00:12 Indirect Bilirubin 5.2 mg/dL (0.0-1.2) H 09/04/18 00:12 AST 43 Units/L (13-39) H 09/04/18 00:12 Alkaline Phosphatase 114 Units/L (34-104) H 09/04/18 00:12 Ammonia 100 mcmol/L (16-53) H 09/04/18 06:20 Serum Total Protein 5.4 g/dL (6.4-8.9) L 09/04/18 00:12 Albumin 3.1 g/dL (3.5-5.7) L 09/04/18 00:12 Globulin 2.3 g/dL (2.4-3.5) L 09/04/18 00:12 Consult Discharge Plan - Plan Referrals: NONE,PCP [Primary Care Provider] -
[2018-09-05] MEDS: Pantoprazole 40 MG in 0.9 % Sodium Chloride Mini Bag 100 ML IVC SCH ×3 (03:20→13:47)
--- NOTE | 2018-09-05 06:57 | Orthopedics Progress Note ---
Date of Encounter: 09/05/18 Time of Encounter: 06:57 Subjective Principal diagnosis: Preop Interval history: Patient seen this morning awake and alert awaiting clearance for surgical intervention either closed reduction or possible reverse shoulder replacement. Objective Vital signs: Vital Signs Temp Pulse Resp BP Pulse Ox 09/05/18 06:44 97.5 F L 100 18 114/62 94 09/05/18 03:57 98.8 F 86 17 132/76 95 09/04/18 23:10 98.3 F 88 16 122/77 96 09/04/18 19:39 98.7 F 92 17 131/57 95 09/04/18 15:54 98.0 F 87 14 125/50 93 09/04/18 08:00 97.8 F 96 16 114/57 96 Intake and Output 09/04/18 09/04/18 09/05/18 15:59 23:59 07:59 Intake Total 605 / 605 110 / 110 100 / 100 Output Total 250 / 250 350 / 350 550 / 550 Balance 355 / 355 -240 / -240 -450 / -450 Intake: IV Fluids 605 / 605 110 / 110 100 / 100 Protonix 40 MG In 0.9 % Sodium 200 / 200 100 / 100 100 / 100 Chloride (Mini-Bag +) 100 ML @ 20 mls/hr IVC .Q5H [facility] Rx#: [id number] Lactated Ringers 1,000 ML @ 75 405 / 405 mls/hr IVC .[id number] [facility] Rx#: [id number] Rocephin 1,000 MG In Water for 10 / 10 inj. (sterile) 10 ML @ 600 mls/ hr IVP DAILY [facility] Rx#:[id number] Oral 0 / 0 0 / 0 Output: Catheter 250 / 250 350 / 350 550 / 550 Urethral (Quiros) 250 / 250 350 / 350 Other: Meal Breakfast Percent of Meal Consumed 0% Stool Size Large Large Stool Consistency liquid liquid Stool Characteristics Seedy Seedy Stool Color Brown Brown Bright Red Blood Blood Tinged # Bowel Movement Diapers 1 1 Weight 84.8 kg Patient Weight 09/05/18 23:59 Weight 84.8 kg - Labs CBC & BMP: 09/04/18 04:35 09/04/18 04:35 Labs: Abnormal lab results RBC 3.07 M/mcL (3.82-4.97) L 09/04/18 04:35 Hgb 9.7 g/dL (11.5-15.4) L 09/04/18 04:35 Hct 29.9 % (35.3-44.9) L 09/04/18 04:35 RDW 15.5 % (11.5-14.5) H 09/04/18 04:35 Plt Count 72 K/mcL (140-400) L 09/04/18 04:35 Platelet Estimate Marked Decrease (Normal) L 09/01/18 17:50 PT 15.7 Seconds (9.4-12.1) H 09/01/18 17:50 Chloride 111 mEq/L (98-107) H 09/04/18 04:35 Carbon Dioxide 20 mEq/L (23-29) L 09/04/18 04:35 BUN 55 mg/dL (8-23) H 09/04/18 04:35 Creatinine 1.83 mg/dL (0.60-1.20) H 09/04/18 04:35 Est GFR ( Amer) 33 (> 60) L 09/04/18 04:35 Est GFR (Non-Af Amer) 27 (> 60) L 09/04/18 04:35 BUN/Creatinine Ratio 30 (6-26) H 09/04/18 04:35 Glucose 164 mg/dL (70-105) H 09/04/18 04:35 Calculated Osmolality 311 (280-300) H 09/04/18 04:35 Total Bilirubin 8.5 mg/dL (0.3-1.0) H 09/04/18 00:12 Direct Bilirubin 3.3 mg/dL (0.0-0.2) H 09/04/18 00:12 Indirect Bilirubin 5.2 mg/dL (0.0-1.2) H 09/04/18 00:12 AST 43 Units/L (13-39) H 09/04/18 00:12 Alkaline Phosphatase 114 Units/L (34-104) H 09/04/18 00:12 Ammonia 100 mcmol/L (16-53) H 09/04/18 06:20 Serum Total Protein 5.4 g/dL (6.4-8.9) L 09/04/18 00:12 Albumin 3.1 g/dL (3.5-5.7) L 09/04/18 00:12 Globulin 2.3 g/dL (2.4-3.5) L 09/04/18 00:12 Consult Discharge Plan - Plan Referrals: NONE,PCP [Primary Care Provider] -
[2018-09-05] MEDS: predniSONE 5 MG TABLET PO SCH (08:11)
[2018-09-05 08:44] LABS: Basophils % 0.1 %; Eosinophils # 0.1 K/mcL (0.0-0.6); Eosinophils % 1.1 %; Hematocrit 26.5 % (35.3-44.9); Hemoglobin 8.5 g/dL (11.5-15.4); Immature Granulocytes % 0.5 % (0-4); Immature Platelets 1.1 % (1.1-6.1); Lymphocytes # 0.6 K/mcL (0.6-4.6); Lymphocytes % 7.4 %; Mean Corpuscular HGB Conc 32.1 g/dL (31.6-35.5); Mean Corpuscular Hemoglobin 31.6 pg (28.0-33.3); Mean Corpuscular Volume 98.5 fL (83.0-100.0); Mean Platelet Volume 10.6 fL (9.4-12.4); Monocytes # 0.9 K/mcL (0.0-1.3); Monocytes % 10.7 %; Neutrophils # 6.8 K/mcL (1.6-8.9); Platelet Count 58 K/mcL (140-400); Red Blood Count 2.69 M/mcL (3.82-4.97); Red Cell Distribution Width 15.8 % (11.5-14.5); Segmented Neutrophils % 80.2 %
[2018-09-05 08:50] LABS: Albumin 2.6 g/dL (3.5-5.7); Albumin/Globulin Ratio 1.4 (1.1-2.2); Bilirubin,Total 7.1 mg/dL (0.3-1.0); Calcium 8.6 mg/dL (8.6-10.3); Globulin 1.8 g/dL (2.4-3.5); Potassium 4.1 mEq/L (3.5-5.1); Total Protein 4.4 g/dL (6.4-8.9)
--- NOTE | 2018-09-05 08:52 | Event Note ---
Addendum entered and electronically signed by Khushbu Cabral, PAC 09/05/18 09:14: S/w Dr. Patel who states she will review patient's case for recommendation Original Note: Date of Encounter: 09/05/18 Time of Encounter: 08:50 S/w Dr. Weinstein re: patient's shoulder Discussed that conscious sedation would be an option however he is concerned about general for patient given her blood pressure and current liver enzymes. States based on today's pending lab results would be able to give a more accurate risk stratification for surgical intervention. States believes anesthesiology consult would be beneficial.
[2018-09-05] MEDS: Lactulose Oral Soln 20 GM/30 ML UDC PO SCH (09:13)
[2018-09-05] MEDS: cefTRIAXone 1,000 MG in Water for inj. (sterile) 20 ML 10 ML IVP SCH (09:14)
--- NOTE | 2018-09-05 10:04 | Anesthesia Evaluation PreOp ---
Date of Encounter: 09/05/18 - Past History Planned Operation: Closed vs. 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) Anesthesia History: Past Anesthesia Alcohol Use: none Drug use: none Medications and Allergies Furosemide [Lasix] 40 mg PO BID 12/19/17 [History] Glucosamn/Condroitn/C/Mn/[place] [Cvs Glucosamine Chondroitin Tb] 1 each PO DAILY 12/19/17 [History] Lactulose [Enulose] 15 ml PO BID 12/19/17 [History] Levothyroxine [Synthroid] 112 mcg PO 30 12/19/17 [History] Memantine HCl 5 mg PO BID 12/19/17 [History] Mv-Min/FA/Vit K/Lycop/Lut/Zeax [Ocuvite Eye Plus Multi Tablet] 1 each PO DAILY 12/19/17 [History] Mycophenolate Mofetil [Cellcept] 250 mg PO BID 12/19/17 [History] Spironolactone [Aldactone] 50 mg PO DAILY 12/19/17 [History] Ursodiol 600 mg PO BID 12/20/17 [History] Rifaximin [Xifaxan] 550 mg PO BID 03/08/18 [History] Calcium Crb,Cit/D3/Min34/Arpita [Citracal + Bone Density Tablet] 1 tab PO DAILY 09/05/18 [History] predniSONE [Prednisone] 7.5 mg PO DAILY 09/05/18 [History] Allergy/AdvReac Type Severity Reaction Status Date / Time Sulfa (Sulfonamide Allergy Hives Verified 09/01/18 14:14 Antibiotics) - Meds/Allergy Pre-op Review Medications Reviewed: Yes Allergies Reviewed: Yes Anesthesia Results - Labs 09/05/18 07:50 09/05/18 07:50 Laboratory Results Impressions Echocardiogram 09/01/18 17:35 Impressions: Exam was not interpretable. Please repeat study when clinical situation improves. Findings: Study Quality * Exam was not interpretable. Please repeat study when clinical situation improves. Abdomen/Pelvis CT 09/04/18 01:02 IMPRESSION: 1. Air-fluid levels in nondistended loops of distal small bowel. No pattern of obstruction. Findings are suspected to represent enteritis. 2. Proximal colon is distended and air-filled. No mucosal abnormality. 3. Cirrhosis with several low attenuating foci in the left hepatic lobe that can not be characterized on this noncontrast exam. Outpatient follow-up is recommended with liver MRI. 4. Limited evaluation of the left upper quadrant due to lack of contrast and significant patient motion contributing to artifact. There are 2 questionable soft tissue structures that may represent volume averaging of adjacent structures. Possibility of a mass can not be excluded. Consider outpatient follow-up CT of the abdomen with contrast. 5. Multiple compression fractures in the lumbar spine that are age indeterminate. Recommend correlation with history and physical exam. A follow-up MRI may be considered if there are acute symptoms. D/ / Ryan Alexandre MD / Ryan Alexandre MD Interpreting Provider: Ryan Alexandre MD Chest X-Ray 09/04/18 08:55 IMPRESSION: 1. No acute cardiopulmonary process. 2. Interstitial prominence potentially due to central vascular crowding, pulmonary vascular congestion, and/or chronic interstitial change. 3. Unchanged anterior dislocation of the left humerus in associated with a displaced fracture of its greater tuberosity. D/ / Raffy Samuels MD / Raffy Samuels MD Interpreting Provider: Raffy Samuels MD - Imaging EKG: report reviewed (90bpm - PROBABLY SINUS RHYTHM SEPTAL MYOCARDIAL INFARCTION, PROBABLY OLD ARTIFACT Electronically Signed On 09-04-2018 17:36:30 EST by Mena Guzman), image reviewed Additional studies: ECHO 09/04/2018 Impressions: LIMITED ECHO LVEF 60-65%. Normal LV chamber size, wall thickness and function. Normal right ventricular structure and function. Mild-moderate aortic stenosis. (Other valves were not interrogated on this Limited study) Left Ventricular Wall Motion: Rest Echo Findings All wall segments showed normal motion. Anesthesia Exam Vital Signs Temp Pulse Resp BP Pulse Ox 09/05/18 06:44 97.5 F L 100 18 114/62 94 09/05/18 03:57 98.8 F 86 17 132/76 95 09/04/18 23:10 98.3 F 88 16 122/77 96 09/04/18 19:39 98.7 F 92 17 131/57 95 09/04/18 15:54 98.0 F 87 14 125/50 93 Intake and Output 09/04/18 09/05/18 09/05/18 23:59 07:59 15:59 Intake Total 110 / 110 100 / 100 Output Total 350 / 350 550 / 550 Balance -240 / -240 -450 / -450 Intake: IV Fluids 110 / 110 100 / 100 Protonix 40 MG In 0.9 % Sodium 100 / 100 100 / 100 Chloride (Mini-Bag +) 100 ML @ 20 mls/hr IVC .Q5H [facility] Rx#: [id number] Rocephin 1,000 MG In Water for inj. (sterile) 10 ML @ 600 mls/ hr IVP DAILY [facility] Rx#:[id number] Oral 0 / 0 Output: Catheter 350 / 350 550 / 550 Urethral (Quiros) 350 / 350 Other: Stool Size Large Stool Consistency liquid Stool Characteristics Seedy Stool Color Brown # Bowel Movement Diapers 1 Weight 84.8 kg Patient Weight 09/05/18 23:59 Weight 84.8 kg Height: 5'3" Weight: 186# BMI = 33 NPO (# of Hours): [place] Pain Scale Used: Numeric (1 - 10) - HEENT Pupil (Motor): Pupils equal, EOMI Anesthesia Assess/Plan ASA Score: 4 (End stage Liver Dz, A/CKDz, Aortic Stenosis) Anesthetic Plan: MAC Monitoring Plan: Standard Monitors Recovery Plan: PACU
[2018-09-05 10:41] VITALS: BP 101/62
--- NOTE | 2018-09-05 11:50 | Gastroenterology Progress Note ---
<MariaaKhoi S - Last Filed: 09/05/18 11:47> Date of Encounter: 09/05/18 Time of Encounter: 10:30 - Assessment and plan (1) Autoimmune liver disease Status: Chronic Assessment and plan: Called patient's social service agency director yesterday, Dr. 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 Continue home mycophenolate and prednisone for immunosuppression Will get paperwork from office visits Unable to visualize liver in right upper quadrant US due to gas bubbles Hgb 10.4 on admission > 8.5 today LDH normal at 266 Blood cultures - pending Given rocephin yesterday Ammonia 152 > 100 yesterday, continue lactulose and rifaximin Bilirubin 5 > 8.5 > 7.1 today (baseline around 5), continue to monitor AST 43 > 57, ALT 27 > 27 Alk Phos 117 > 114 > 98 today Patient has not had any more episodes of bloody vomiting, will hold off on EGD Would not recommend surgery with patient's liver function decompensated Spoke with hospitalist about transferring patient to [facility] - where her social service agency director is employed (2) Anemia Status: Suspected Assessment and plan: Patient's Hgb 8.5, down from 10.4 on admission (baseline around 9.5) LDH - 266 Spoke to hospitalist about transferring patient to [facility] due to decompensation of liver function Qualifiers: Anemia type: other cause Other causes of anemia: chronic disease, other Qualified Code(s): D63.8 - Anemia in other chronic diseases classified elsewhere - Time Spent With Patient Total time spent is greater than 50% in coordination of care (as documented) at patient's floor/unit and/or counseling patient: - Subjective Interval history: Patient seen this morning. She is resting is bed, still drowsy. She still has some left shoulder pain, but no other complaints this morning. Patient denies CP, SOB, abdominal pain, numbness/tingling. - Constitutional Vitals: Temp Pulse Resp BP Pulse Ox 98.0 F 82 13 101/62 93 09/05/18 10:39 09/05/18 10:39 09/05/18 10:39 09/05/18 10:39 09/05/18 10:39 General appearance: Present: A&O X 3 Exam: Drowsy but oriented - Respiratory Respiratory exam: Present: CTAB - Cardiovascular Cardiovascular exam: Present: RRR - GI/Abdominal GI/Abdominal exam: Present: normal bowel sounds, soft. Absent: distended, tenderness - Skin Additional comments: Jaundiced Results - Labs CBC & Chem 7: 09/05/18 07:50 09/05/18 07:50 Labs: Last Result Calcium 8.6 mg/dL (8.6-10.3) 09/05/18 07:50 Entire Visit Hgb 8.5 g/dL (11.5-15.4) L 09/05/18 07:50 Hct 26.5 % (35.3-44.9) L 09/05/18 07:50 PT 15.7 Seconds (9.4-12.1) H 09/01/18 17:50 Total Bilirubin 7.1 mg/dL (0.3-1.0) H 09/05/18 07:50 AST 57 Units/L (13-39) H 09/05/18 07:50 ALT 27 Units/L (7-52) 09/05/18 07:50 Ammonia 100 mcmol/L (16-53) H 09/04/18 06:20 - ABG ABG results: PT/INR, D-dimer PT 15.7 Seconds (9.4-12.1) H 09/01/18 17:50 - Impressions Impressions Chest X-Ray 09/01/18 17:36 IMPRESSION: No acute cardiopulmonary process. Dislocation/fracture of the left shoulder. D/ / 09/01/2018 21:47:26 Darlin Rene MD / earnotess Interpreting Provider: Darlin Rene MD Consult Discharge Plan - Plan Referrals: NONE,PCP [Primary Care Provider] - <Kei Regalado - Last Filed: 09/08/18 06:08> Date of Encounter: 09/05/18 - Time Spent With Patient Total time spent is greater than 50% in coordination of care (as documented) at patient's floor/unit and/or counseling patient: - Constitutional Vitals: Temp Pulse Resp BP Pulse Ox 98.0 F 82 13 101/62 93 09/05/18 10:39 09/05/18 10:39 09/05/18 10:39 09/05/18 10:39 09/05/18 10:39 Results - Labs CBC & Chem 7: 09/05/18 07:50 09/05/18 07:50 Labs: Last Result Calcium 8.6 mg/dL (8.6-10.3) 09/05/18 07:50 Entire Visit Hgb 8.5 g/dL (11.5-15.4) L 09/05/18 07:50 Hct 26.5 % (35.3-44.9) L 09/05/18 07:50 PT 15.7 Seconds (9.4-12.1) H 09/01/18 17:50 Total Bilirubin 7.1 mg/dL (0.3-1.0) H 09/05/18 07:50 AST 57 Units/L (13-39) H 09/05/18 07:50 ALT 27 Units/L (7-52) 09/05/18 07:50 Ammonia 100 mcmol/L (16-53) H 09/04/18 06:20 - ABG ABG results: PT/INR, D-dimer PT 15.7 Seconds (9.4-12.1) H 09/01/18 17:50 - Attending Attestation I examined this patient and my medical decision-making was reviewed with the Resident Physician. I agree with the documented findings, disposition and treatment plan as described except to the extent set forth below. Isatu has been under care of Dr Maldonado hepatology at [facility] for the past 8-9 years. He is not sure if, patient actually has AIH. 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 Being treated with Prednisone and Urosdiol. She has decompensated disease and her bilirubin is around 5 mg % at baseline apparently. .Has an acute shoulder fracture. Will wa tch her today and then may need to transfer to [facility] for perioperative and postoperative care if, she had surgery. Discussed with patient and
--- NOTE | 2018-09-05 12:45 | Discharge Summary ---
- NOTES TO OUTPATIENT PROVIDER Notes to Outpatient Provider: . Orders not resulted at time of discharge: Pending orders 09/04/18 04:00 Mycophenolic Acid Metabolites Routine 09/04/18 14:02 Culture,Blood [BC] Routine Date of Encounter: 09/05/18 Time of Encounter: 12:33 - Discharge Diagnosis (1) Acute hepatic encephalopathy Priority: Primary Status: Acute (2) Shoulder fracture, left Priority: Secondary Status: Acute Qualifiers: Encounter type: initial encounter Fracture type: closed Qualified Code(s): S42.92XA - Fracture of left shoulder girdle, part unspecified, initial encounter for closed fracture (3) Preoperative clearance Priority: Secondary Status: Acute (4) Autoimmune liver disease Priority: Secondary Status: Chronic (5) Primary biliary cirrhosis Priority: Secondary Status: Acute (6) CKD (chronic kidney disease), stage III Priority: Secondary Status: Chronic (7) DVT prophylaxis Priority: Secondary Status: Acute Hospital course: Ms. Kent is a 73 year old female patient with a history of Primary biliary cirrhosis and autoimmune hepatitis, chronic kidney disease stage III who presented to the ED and was admitted here after a fall resulting in left shoulder fracture with dislocation. Patient was evaluated by orthopedics and recommended surgery for it. She was therefore admitted here. Given her underlying liver disease and systolic murmur, cardiology and gastroenterology were consulted to evaluate her for medical clearance. Patient underwent 2-D echocardiogram which showed mild to moderate aortic stenosis. Cardiology placed her at moderate risk for surgical procedure. However patient developed hepatic encephalopathy along with worsening bilirubin levels with concern for decompensation. Gastroenterology evaluated her and at this time do not feel comfortable in clearing her for anesthesia or conscious sedation given her abnormal liver function and underlying liver disease. Patient also developed episodes of hematemesis along with food and so has been made nothing by mouth. Gastroenterology did not recommend EGD at this time given her encephalopathy. Her bilirubin levels also trended up to 8.5 where her baseline is around 5. Her creatinine also increased to 1.80 despite receiving IV fluids. She did receive 20 mg of IV Lasix yesterday as her chest x-ray showed increased interstitial markings. Her creatinine today is 1.84. She is at high risk for developing hepatorenal syndrome. She has not received any heparin products. She hasn't had any further episodes of hematemesis. She has been on protonix drip. She is on a fentanyl 12 mcg patch currently or pain. She had previous received Oxycodone SL and it has been stopped since yesterday. Store Manager Dr. Regalado recommends transferring patient to tertiary care center to be evaluated by her gas tester and for preoperative clearance. He believes that he should not liver disease will be difficult to manage following anesthesia and patient needs to be at a facility that can manage it. I called [facility] that was recommended by her gas tester Dr. Maldonado's staff and spoke with the hospitalist Dr. Hobson over there who kindly accepted patient for transfer due to her complicated liver disease. Patient will be transferred there once she has a bed available. Discharge discussed with: patient, nurse, solar sales consultant - Time Spent with Patient Total time spent providing and/or coordinating discharge services: Greater than 30 minutes (45 min) - Discharge Medications Home Medications: Furosemide [Lasix] 40 mg PO BID 12/19/17 [History] Glucosamn/Condroitn/C/Mn/[place] [Cvs Glucosamine Chondroitin Tb] 1 each PO DAILY 12/19/17 [History] Lactulose [Enulose] 15 ml PO BID 12/19/17 [History] Levothyroxine [Synthroid] 112 mcg PO 0630 12/19/17 [History] Memantine HCl 5 mg PO BID 12/19/17 [History] Mv-Min/FA/Vit K/Lycop/Lut/Zeax [Ocuvite Eye Plus Multi Tablet] 1 each PO DAILY 12/19/17 [History] Mycophenolate Mofetil [Cellcept] 250 mg PO BID 12/19/17 [History] Spironolactone [Aldactone] 50 mg PO DAILY 12/19/17 [History] Ursodiol 600 mg PO BID 12/20/17 [History] Rifaximin [Xifaxan] 550 mg PO BID 03/08/18 [History] Calcium Crb,Cit/D3/Min34/Arpita [Citracal + Bone Density Tablet] 1 tab PO DAILY 09/05/18 [History] predniSONE [Prednisone] 7.5 mg PO DAILY 09/05/18 [History] Allergies/Adverse Reactions: Allergy/AdvReac Type Severity Reaction Status Date / Time Sulfa (Sulfonamide Allergy Hives Verified 09/01/18 14:14 Antibiotics) Date of admission: 09/03/18 15:19 Primary care physician: PCP NONE Consults: 09/01/18 17:40 Consult to Pastoral Services [CONS] Routine Comment: Consult to Ships Equipment Engineer [CONS] Routine Reason for SW Consult: D/C planning 09/03/18 08:25 Consult to Cardiology [CONS] Routine Comment: Consulting Provider: Jakob Glez Reason for Consult: Preop evaluation Time Notified: 08:26 Call Completed: Yes 09/04/18 00:16 Consult to Gastroenterology [CONS] Routine Consulting Provider: Gastroenterology Amaris Reason for Consult: Patient began having episodes of hemoptysis versus hematemesis this evening. Unclear if varices are a factor. Pt. is supposed to have surgical clearance in the a.m. for left shoulder surgery. Echo and stress ordered for a.m. Pt. has chronic liver disease and autoimmune hepatitis. Call Completed: No 09/05/18 08:52 Consult to Anesthesiology [CONS] Routine Consulting Provider: Anesthesia Amaris Reason for Consult: risk stratification for closed reduction conscious sedation vs open surgical general anesthesia Time Notified: 08:53 Call Completed: No Discharging clinician: Priyank Weinstein Anticipated date of discharge: 09/05/18 - Constitutional Vitals: Temp Pulse Resp BP Pulse Ox 98.0 F 82 13 101/62 93 09/05/18 10:39 09/05/18 10:39 09/05/18 10:39 09/05/18 10:39 09/05/18 10:39 General appearance: Present: cooperative, mild distress, pleasant, answers questions appropriately Exam: General: Patient is somnolent, but easily awakes. She is oriented to place and person at this time ENT: Mucous membranes moist. Icterus present Respiratory: Decreased breath sounds at both bases with mild crackles Cardiovascular: Regular rate and rhythm. s1 and s2 normal systolic murmur. Bilateral pedal edema present Abdomen: Abdomen is soft, nontender. Bowel sounds are present Musculoskeletal: Tenderness at left shoulder Skin: warm, dry, intact. Jaundice present Neuro: Oriented to place and person ; normal cranial nerves, no focal deficits - Patient Status Disposition: Transfer Other Condition: Serious Functional capacity at discharge: bed bound Overall status at discharge: patient is not back to baseline - Discharge Instructions Follow Up With: NONE,PCP [Primary Care Provider] - - Diet and Activity Diet: other (npo)
[2018-09-05] MEDS ORDERED: Pantoprazole 40 MG VIAL IVP ONE (15:22)
[2018-09-08 10:14] LABS: Mycophenolic Acid 0.6 ug/mL (1.0-3.5); Mycophenolic Acid Glucuronide 26.7 ug/mL (35.0-100.0)
== END 2018-09-05 15:48 | disposition other institution (70) | DRG 562 ==
LOC: 3NENU
PROVIDERS: ADMIT Internal Medicine; ATTEND Internal Medicine